=== PATIENT | male | born 1940 | race Two or more races ===

== ENCOUNTER → 2024-08-26 | Outpatient (CLI) | payer MEDICARE, MEDICAID, SELFPAY ==
[2024-08-26 09:08] LABS: Collection Type, Urine Clean Catch; Squamous Epithelial Cell,Urine 0 /hpf (0-5)
[2024-08-26 10:19] LABS: Basophils % (Auto) 1 % (0-2.5); Eosinophils # (Auto) 0.3 Thou/mm3 (0.0-0.5); Eosinophils % (Auto) 5 % (0-10); Hematocrit 41.8 % (41.0-53.0); Hemoglobin 14.1 g/dL (13.5-16.0); Immature Granulocytes % (Auto) 0 % (0-0); Immature Granulocytes Auto 0.01 Thou/mm3 (0.00-0.00); Lymphocytes # (Auto) 1.9 Thou/mm3 (1.0-4.8); Lymphocytes % (Auto) 31 % (10-50); Mean Corpuscular HGB Conc 33.7 g/dl (31.0-37.0); Mean Corpuscular Hemoglobin 29.7 pg (25.0-35.0); Mean Corpuscular Volume 88 fL (80-100); Monocytes # (Auto) 0.4 Thou/mm3 (0.0-0.8); Monocytes % (Auto) 7 % (0-12); Neutrophils # (Auto) 3.4 Thou/mm3 (1.8-7.7); Neutrophils % (Auto) 56 % (37-80); Nucleated Red Blood Cell % 0 /100 WBC (0); Platelet Count 268 Thou/mm3 (140-440); RDW Standard Deviation 45.9 fL (35.1-43.9); Red Blood Count 4.74 Miln/mm3 (4.50-5.90)
[2024-08-26 10:28] LABS: Bilirubin,Urine Negative (Negative); Blood,Urine Negative (Negative); Clarity,Urine Clear (Clear/Hazy); Color,Urine Lt-Yellow (Lt Yel-Yel); Glucose, Urine 4+ (Negative); Ketones,Urine Negative (Negative); Leukocyte Esterase,Urine Positive (Negative); Nitrite,Urine Negative (Negative); Protein,Urine 1+ (Neg - Trace); RBC,Urine 2 /hpf (0-3); Specific Gravity,Urine 1.022 (1.001-1.035); Urobilinogen,Urine Negative mg/dL (0.0-1.0); WBC,Urine 9 /hpf (0-5)
[2024-08-26 10:32] LABS: Parathyroid Hormone Intact 66.3 pg/ml (18.5-88.0)
[2024-08-26 10:38] LABS: Vitamin D 25 Hydroxy Total 68.6 ng/mL (7.3-40.2)
[2024-08-26 10:41] LABS: Glucose Estimated Average 194 mg/dL (80-131); Hemoglobin A1C 8.4 % Hgb (4.8-6.0)
[2024-08-26 11:01] LABS: Albumin, Serum 3.9 gm/dL (3.4-4.8); Anion Gap 8 (7-16); BUN/Creatinine Ratio 16 Ratio (12-20); Blood Urea Nitrogen 21 mg/dL (9-23); Calcium 8.7 mg/dL (8.3-10.6); Calcium (Corrected) 8.8 mg/dL (8.5-10.1); Carbon Dioxide 25.4 mMol/L (20.0-31.0); Chloride 103 mMol/L (98-107); Creatinine (Component) 1.3 mg/dL (0.6-1.3); Glucose 107 mg/dL (74-106); Osmolality,Calculated 274 (275-295); Phosphorous 3.7 mg/dL (2.4-5.1); Potassium 4.3 mMol/L (3.4-5.1); Sodium 136 mMol/L (136-145); eGFR 54 See Note
== END | disposition home or self-care (01) ==
LOC: COPL 07:42
PROVIDERS: PCP Internal Medicine; Referring Provider Internal Medicine Nephrology; Visit Provider Internal Medicine Nephrology
DX: E11.22 Type 2 diabetes mellitus with diabetic chronic kidney disease (principal); N18.31 Chronic kidney disease, stage 3a; E55.9 Vitamin D deficiency, unspecified
CPT/HCPCS: 36415; 80069; 81001; 82306; 83036; 83970; 85025

== ENCOUNTER 2024-10-28 06:55 | Observation (INO) | payer MEDICARE, MEDICAID, SELFPAY ==
[2024-10-28] VITALS (12 sets, daily range): BP systolic 154–198; BP diastolic 71–103; PULSE 53–94; RESP 12–93; TEMP 36.1–36.7; O2SAT 73–99; BMI 31.3
--- NOTE | 2024-10-28 | XR_ITS ---
Examinations: MRI Brain without intravenous contrast. MRA brain without intravenous contrast. MRA carotids without intravenous contrast 3-D vascular reconstructions Date and time of exam: October 28, 2024 1257 hours INDICATIONS: Dizziness episodes beginning 6:00 AM this morning Technique: Multiple axial and sagittal images of the brain have been obtained MRA brain carotid images without contrast obtained, including 3-D postprocessing, vascular maximum intensity projection images Findings: Sellaturcica is not enlarged. The optic chiasm and infundibular stalk are not remarkable. Prepontine and interpeduncular cisterns are not enlarged. No localized enlargement of the medulla or soheila. Fourth ventricle and cerebellar tonsils normal in position. Subacute hemorrhage is not seen. Fourth ventricle is midline. Mass in the cerebellopontine angle region is not evident. 7th and 8th nerve complexes exhibits symmetry. Globes are symmetrical with no retro-orbital mass. Increased white matter signal moderate Diffusion-weighted images demonstrate no focus of restricted diffusion Mass-effect upon the ventricular system is not identified. MRA carotid images degraded by patient motion. MRA brain images no large vessel occlusions Impression: Negative for acute hemorrhage mass effect or midline shift No acute infarct No cerebral large vessel arterial occlusions
--- NOTE | 2024-10-28 07:57 | XR_ITS ---
Examination: CTA carotids with intravenous contrast CTA brain, head with intravenous contrast. 2-D sagittal, coronal reconstructions. 3-D reconstructions. Exam date and time: October 28, 2024 0816 hours INDICATIONS: Stroke alert, onset generalized body weakness nausea vomiting today CTDI: vol (mGy) 27 DLP: (mGycm) 470 Technique: Multiple CTA axial brain, head carotid images post intravenous contrast injection 75 cc, [id number]. 2-D sagittal, coronal reconstructions. 3-D reconstructions, 3-D post processing including vascular maximum intensity projection images. Low dose protocols were performed. One or more of the following dose reduction techniques were used; automated exposure control, adjustment of the mA and/or KV according to patient size, use of iterative reconstruction technique. Findings: 14 mm right thyroid nodule Bone destruction involving the occipital bones Pulmonary mass right upper lobe indistinct margins, partially visualized, at least 4 cm No significant common carotid carotid bifurcation or internal carotid artery stenoses Dominant right vertebral artery with no critical stenoses No cerebral large vessel arterial occlusions thrombus dissection or cerebral aneurysm IMPRESSION: 14 mm right thyroid nodules Pulmonary mass right upper lobe, please see the CT chest report February 25, 2018, recommend repeat CT chest follow-up No significant neck arterial stenoses No cerebral large vessel arterial occlusions 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 This is noted on the CT brain scan September 06, 2017
--- NOTE | 2024-10-28 07:57 | XR_ITS ---
Examination: CT brain head without contrast. 2-D sagittal coronal reconstructions Date and time of exam:October 28, 2024 0808 hours INDICATIONS: Stroke alert, onset focal neurologic deficit today Technique: Multiple CT axial sections of the brain have been obtained, 5 mm slice thickness. Contrast has not been administered. 2-D sagittal, coronal reconstructions have been obtained Low dose protocols were performed. One or more of the following dose reduction techniques were used; automated exposure control, adjustment of the mA and/or KV according to patient size, use of iterative reconstruction technique. Findings: No significant ventricular enlargement. Intra-axial or extra-axial hemorrhage density is not seen. No mass effect or midline shift Basal cisterns are not remarkable. Fourth ventricle is midline. Cranial vault intact. Impression: Negative for acute hemorrhage, mass effect or midline shift
[2024-10-28 08:09] LABS: Basophils % (Auto) 1 % (0-2.5); Eosinophils # (Auto) 0.2 Thou/mm3 (0.0-0.5); Eosinophils % (Auto) 2 % (0-10); Hematocrit 40.3 % (41.0-53.0); Hemoglobin 13.9 g/dL (13.5-16.0); Immature Granulocytes % (Auto) 0 % (0-0); Immature Granulocytes Auto 0.03 Thou/mm3 (0.00-0.00); Lymphocytes # (Auto) 1.3 Thou/mm3 (1.0-4.8); Lymphocytes % (Auto) 14 % (10-50); Mean Corpuscular HGB Conc 34.5 g/dl (31.0-37.0); Mean Corpuscular Hemoglobin 30.3 pg (25.0-35.0); Mean Corpuscular Volume 88 fL (80-100); Monocytes # (Auto) 0.4 Thou/mm3 (0.0-0.8); Monocytes % (Auto) 4 % (0-12); Neutrophils # (Auto) 6.9 Thou/mm3 (1.8-7.7); Neutrophils % (Auto) 79 % (37-80); Nucleated Red Blood Cell % 0 /100 WBC (0); Platelet Count 214 Thou/mm3 (140-440); RDW Standard Deviation 46.7 fL (35.1-43.9); Red Blood Count 4.59 Miln/mm3 (4.50-5.90); White Blood Count 8.8 Thou/mm3 (3.8-10.6)
--- NOTE | 2024-10-28 08:20 | PC.NURSE ---
PER TELENEUROLOGIST DR. SHANKS, PT NOT A CANDIDATE FOR THROMBOLYTICS AT THIS TIME.
[2024-10-28 08:27] LABS: B-Type Natriuretic Peptide 104 pg/mL (0-100)
--- NOTE | 2024-10-28 08:34 | PD.TNEURO ---
Tele Neuro Consultation Consultation Date 10/28/24 Most Recent Vital Signs Last Vital Signs Temp 97.8 F 10/28/24 07:28 Pulse 83 10/28/24 07:28 Resp 14 10/28/24 07:28 BP 179/103 H 10/28/24 07:28 Pulse Ox 90 L 10/28/24 07:28 O2 Del Method Room Air 10/28/24 07:28 O2 Flow Rate 2 10/28/24 07:00 Consultation Narrative [facility] Tele[facility]urology Consult Services Patient Name: Kumar Yoon Date of : 1940 Identification Number: Date of Service: 10/28/2024 07:59:26 Diagnosis: ? I63.89 - Cerebrovascular accident (CVA) due to other mechanism ([facility]) Impression: ? Stroke Patient is not an IV thrombolytic candidate as he awoke w the symptoms - unknown Last normal time then Plan - Await results of the CTA h/n Plavix loading, 300 mg now, then begin 21 day course of ASA 81 mg and Plavix 75 mg daily MRI brain w/o Our recommendations are outlined below. Recommendations: ? Stroke/Telemetry Floor ? Neuro Checks (Q2) ? Bedside Swallow Eval ? DVT Prophylaxis ? IV Fluids, Normal Saline ? Head of Bed 30 Degrees ? Euglycemia and Avoid Hyperthermia (PRN Acetaminophen) ? Bolus with Clopidogrel 300 mg bolus x1 and initiate dual antiplatelet therapy with Aspirin 81 mg daily and Clopidogrel 75 mg daily ? Antihypertensives PRN if Blood pressure is greater than 220/120 or there is a concern for End organ damage/contraindications for permissive HTN. If blood pressure is greater than 220/120 give labetalol PO or IV or Vasotec IV with a goal of 15% reduction in BP during the first 24 hours. Sign Out: ? Discussed with Rapid Response Team Advanced Imaging: Advanced imaging has been ordered. Results pending. Metrics: Last Known Well: Unknown Dispatch Time: 10/28/2024 07:59:26 Arrival Time: 10/28/2024 07:12:00 Initial Response Time: 10/28/2024 08:01:04 Symptoms: Dizziness. Initial patient interaction: 10/28/2024 08:12:38 NIHSS Assessment Completed: 10/28/2024 08:17:24 Patient is not a candidate for Thrombolytic. Thrombolytic Medical Decision: 10/28/2024 08:17:26 Patient was not deemed candidate for Thrombolytic because of following reasons: LKW outside 4.[address] Head: I personally reviewed all the CT images that were available to me and it showed: no acute abnormality Primary Provider Notified of Diagnostic Impression and Management Plan on: 10/28/2024 08:21:33 History of Present Illness: Patient is a 84 year old Male. Patient was brought by EMS for symptoms of Dizziness. 84-year-old male with a past medical history significant for hypertension hyperlipidemia as well as diabetes patient is on aspirin reportedly awoke this morning with the room spinning sensation and frequent episodes of nausea and vomiting His symptoms became quite profound at 6:00 in the morning family then called EMS services Brought him to the hospital Past Medical History: ? Hypertension ? Diabetes Mellitus ? Hyperlipidemia ? There is no history of Atrial Fibrillation ? There is no history of Coronary Artery Disease ? There is no history of Stroke ? There is no history of Covid-19 ? There is no history of Seizures ? There is no history of Migraine Headaches ? There is no history of Dementia/MCI Medications: No Anticoagulant use Antiplatelet use: Yes ASA Reviewed EMR for current medications Allergies: Reviewed Social History: Drug Use: No Family History: There is no family history of premature cerebrovascular disease pertinent to this consultation ROS : 14 Points Review of Systems was performed and was negative except mentioned in HPI. Past Surgical History: There Is No Surgical History Contributory To Today?s Visit Examination: BP(179/103), Pulse(83), Blood Glucose(107) 1A: Level of Consciousness - Alert; keenly responsive + 0 1B: Ask Month and Age - Both Questions Right + 0 1C: Blink Eyes & Squeeze Hands - Performs Both Tasks + 0 2: Test Horizontal Extraocular Movements - Normal + 0 3: Test Visual Cuevas - No Visual Loss + 0 4: Test Facial Palsy (Use Grimace if Obtunded) - Normal symmetry + 0 5A: Test Left Arm Motor Drift - No Drift for 10 Seconds + 0 5B: Test Right Arm Motor Drift - No Drift for 10 Seconds + 0 6A: Test Left Leg Motor Drift - No Drift for 5 Seconds + 0 6B: Test Right Leg Motor Drift - No Drift for 5 Seconds + 0 7: Test Limb Ataxia (FNF/Heel-Brice) - No Ataxia + 0 8: Test Sensation - Normal; No sensory loss + 0 9: Test Language/Aphasia - Normal; No aphasia + 0 10: Test Dysarthria - Mild-Moderate Dysarthria: Slurring but can be understood + 1 11: Test Extinction/Inattention - No abnormality + 0 NIHSS Score: 1 Pre-Morbid Modified Manuel Scale: 0 Points = No symptoms at all Spoke with : nurse called no answer This consult was conducted in real time using interactive audio and video technology. Patient was informed of the technology being used for this visit and agreed to proceed. Patient located in hospital and provider located at home/office setting. Patient is being evaluated for possible acute neurologic impairment and high probability of imminent or life-threatening deterioration. I spent total of 35 minutes providing care to this patient, including time for face to face visit via telemedicine, review of medical records, imaging studies and discussion of findings with providers, the patient and/or family. Dr Rito Acosta [facility] For Inpatient follow-up with [facility] physician please call [facility] at . As we are not an outpatient service for any post hospital discharge needs please contact the hospital for assistance. If you have any questions for the [facility] physicians or need to reconsult for clinical or diagnostic changes please contact us via [facility] at .
[2024-10-28] MEDS: ONDANSETRON INJ 2 MG/ML INJ 2 ML 4 MG IV ×3 (08:38→19:51)
[2024-10-28] MEDS: SODIUM CHLORIDE 0.9% 1000 ML 1,000 ML 100 ML IV ×2 (08:41→21:52)
[2024-10-28 08:48] LABS: Alanine Aminotransferase 8 U/L (10-49); Albumin, Serum 3.9 gm/dL (3.4-4.8); Albumin/Globulin Ratio 1.1 (1.2-2.2); Alcohol, Blood Medical < 3.0 mg/dL (0-10.0); Alkaline Phosphatase 91 U/L (46-116); Anion Gap 11 (7-16); Aspartate Amino Transferase 11 U/L (0-34); BUN/Creatinine Ratio 14 Ratio (12-20); Bilirubin,Total 0.6 mg/dL (0.3-1.2); Blood Urea Nitrogen 20 mg/dL (9-23); Calcium (Corrected) 8.1 mg/dL (8.5-10.1); Carbon Dioxide 25.4 mMol/L (20.0-31.0); Chloride 103 mMol/L (98-107); Creatinine (Component) 1.4 mg/dL (0.6-1.3); Estimated Creatinine Clearance 39.4 mL/min (>60); Globulin 3.7 gm/dL (2.3-3.5); Glucose 241 mg/dL (74-106); Magnesium 2.2 mg/dL (1.6-2.6); Osmolality,Calculated 288 (275-295); Potassium 3.9 mMol/L (3.4-5.1); Sodium 139 mMol/L (136-145); Total Protein 7.6 gm/dL (5.7-8.2); Troponin I < 0.020 ng/mL (0.0-0.045); eGFR 49 See Note
[2024-10-28 09:01] LABS: Collection Type, Urine Catheter; Squamous Epithelial Cell,Urine 0 /hpf (0-5)
[2024-10-28 09:16] LABS: Bilirubin,Urine Negative (Negative); Blood,Urine Negative (Negative); Clarity,Urine Clear (Clear/Hazy); Color,Urine Lt-Yellow (Lt Yel-Yel); Glucose, Urine 4+ (Negative); Ketones,Urine Negative (Negative); Leukocyte Esterase,Urine Negative (Negative); Nitrite,Urine Negative (Negative); Protein,Urine 1+ (Neg - Trace); RBC,Urine 1 /hpf (0-3); Specific Gravity,Urine 1.017 (1.001-1.035); Urobilinogen,Urine Negative mg/dL (0.0-1.0); WBC,Urine 1 /hpf (0-5)
[2024-10-28 09:19] LABS: Amphetamine/Methamp Scrn,U Negative (Negative); Barbiturate Screen,Urine Negative (Negative); Benzodiazepines Screen,Urine Negative (Negative); Benzoylecgonine Screen, Ur Negative (Negative); Fentanyl Screen,Urine Negative (Negative); Opiate Screen,Urine Negative (Negative); THC Screen,Urine Negative (Negative)
[2024-10-28 09:24] LABS: Partial Thromboplastin Time 26.9 Seconds (22.0-36.0); Prothrombin Time 11.3 Seconds (9.0-12.2)
[2024-10-28] MEDS: ASPIRIN EC 81 MG TABEC PO (10:43)
[2024-10-28] MEDS: CLOPIDOGREL BISULFATE 75 MG TABLET 300 MG PO (10:43)
--- NOTE | 2024-10-28 11:23 | ECHO_ITS ---
Transthoracic Echo Report Ht (in): 66 Wt (lb): 194 Exam Location: Echo Lab Status: Inpatient Lab Support Service Tech: Kiki Cunningham Indications: Procedure Performed: BP: 164 / 77 HR: 81 Technical Quality: Technically difficult study MEASUREMENTS (Male / Female) Normal Values 2D ECHO LV Diastolic Diameter PLAX 5.2 cm 4.2 - 5.9 / 3.9 - 5.3 cm LV Systolic Diameter PLAX 3.5 cm IVS Diastolic Thickness 1.2 cm 0.6 - 1.0 / 0.6 - 0.9 cm LVPW Diastolic Thickness 1.3 cm 0.6 - 1.0 / 0.6 - 0.9 cm LV Relative Wall Thickness 0.5 LVOT Diameter 2.0 cm M-MODE Aortic Root Diameter MM 2.6 cm LA Systolic Diameter MM 4.1 cm LA Ao Ratio MM 1.6 AV Cusp Separation MM 1.0 cm DOPPLER AV Peak Velocity 290.5 cm/s AV Peak Gradient 33.8 mmHg AV Mean Gradient 20.0 mmHg AV Velocity Time Integral 62.7 cm LVOT Peak Velocity 68.7 cm/s LVOT Peak Gradient 1.9 mmHg LVOT Velocity Time Integral 15.2 cm LVOT Cardiac Index 1883.8 cm?/min?m? AV Area Cont Eq vti 0.8 cm? AV Area Cont Eq pk 0.7 cm? MV Peak Velocity 184.0 cm/s MV Peak Gradient 13.5 mmHg MV Mean Velocity 98.4 cm/s MV Mean Gradient 5.0 mmHg MV Area PHT 4.8 cm? Mitral E Point Velocity 148.0 cm/s LV E' Lateral Velocity 22.3 cm/s Mitral E to LV E' Lateral Ratio 6.6 LV E' Septal Velocity 12.7 cm/s Mitral E to LV E' Septal Ratio 11.7 FINDINGS Left Ventricle Normal left ventricular size and systolic function with no obvious regional wall motion abnormalities. Mild LVH. The ejection fraction is visually estimated at 55 %. Right Ventricle The right ventricle is normal in size and systolic function. McConnells sign is present. Left Atrium The left atrium is normal by two-dimensional, color flow and Doppler imaging with no structural abnormalities, no thrombus formation present. Right Atrium The right atrium is normal by two-dimensional imaging, color flow and Doppler imaging with no structural abnormalities, no thrombus formation present. Atrial Septum The interatrial septum appears normal with no evidence of a shunt. Aorta The aorta is normal by two-dimensional, color flow and Doppler interrogation. Mitral Valve Mild thickening of the mitral valve leaflets. Mild mitral regurgitation. Aortic Valve Aortic valve sclerosis. Mild aortic valve stenosis. Tricuspid Valve The tricuspid valve is normal by two-dimensional, color flow and Doppler interrogation. There is no significant tricuspid valve regurgitation. Pulmonic Valve The pulmonic valve is not well visualized. There is no significant pulmonic valve regurgitation. Vessels The pulmonary artery appears normal. The inferior vena cava pulmonary and hepatic veins appear normal. Pericardium The pericardium is normal by two-dimensional imaging. There is no significant pericardial effusion. CONCLUSIONS Indication: stroke Moderate Calcific aortic stenosis Vmax 2.8 m/sec with peak gradient 33 mmHg and mean gradient 21 mm HG Negative bubble study. No cardiac thrombi Normal left ventricular size and function. Mild LVH. Estimated EF 60 %. RV is normal in size and systolic function. Mild thickening of the MV with Mild MR. . Vivi Gray (Electronically Signed) Final Date: 29 Oct 2024 08:56
--- NOTE | 2024-10-28 11:30 | PD.EDDIZZY ---
ED Dizzyness RME/HPI General Chief Complaint: Weakness Stated Complaint: N/V Time Seen by Provider: 10/28/24 07:49 Arrival date/time: 10/28/24 06:55 Limitations: no limitations RME / HPI RME / HPI Narrative: 84 year old male with history of hypertension and diabetes presents to the ED [facility] from home for evaluation of acute dizziness that began at approximately 6:00 AM today. The patient reports that the dizziness started suddenly while attempting to get out of bed to get dressed. He describes the sensation as room-spinning and notes it was accompanied by nausea. No reported relieving or exacerbating factors, and due to the severity of symptoms, 911 was called. He denies any falls, trauma, or head injury. While in the ED, he states the dizziness has since improved. He denies any recent illness, fever, chills, diaphoresis, chest pain, cough, shortness of breath, abdominal pain, changes in bowel habits, or urinary symptoms. Related Data Home Medications ?Medication ?Instructions ?Recorded ?Confirmed cilostazol 50 mg tablet 50 mg PO BID 08/05/17 08/11/23 sitagliptin phosphate 100 mg 100 mg PO QDAY 08/05/17 08/11/23 tablet (Januvia) aspirin 81 mg tablet,delayed 81 mg PO QDAY Heart 09/30/17 08/11/23 release (Aspir-) atenolol 25 mg tablet 25 mg PO QAM 09/30/17 08/11/23 atorvastatin 40 mg tablet 40 mg PO QDAY 09/30/17 10/28/24 gemfibrozil 600 mg tablet 600 mg PO BID 09/30/17 08/11/23 amlodipine 10 mg tablet 10 mg PO BID 08/11/23 10/28/24 cholecalciferol (vitamin D3) 50 50 mcg PO QDAY 08/11/23 08/11/23 mcg (2,000 unit) capsule (Vitamin D3) docusate sodium 100 mg capsule 200 mg PO BID 08/11/23 08/11/23 (Stool Softener) dulaglutide 3 mg/0.5 mL 3 mg subcut QWEEK 08/11/23 08/11/23 subcutaneous pen injector (Trulicity) empagliflozin 10 mg tablet 10 mg PO QAM 08/11/23 10/28/24 (Jardiance) finasteride 5 mg tablet (Proscar) 5 mg PO QDAY 08/11/23 08/11/23 gabapentin 100 mg capsule 100 mg PO BID 08/11/23 08/11/23 glipizide 10 mg tablet 10 mg PO BID 08/11/23 10/28/24 melatonin 5 mg tablet 5 mg PO HS glip 08/11/23 08/11/23 multivitamin 1 tab PO QAM 08/11/23 10/28/24 tamsulosin 0.4 mg capsule (Flomax) 0.4 mg PO QDAY 08/11/23 10/28/24 vitamin A-vitamin C-vit E-min 1 tab PO QDAY 08/11/23 08/11/23 tablet clonidine HCl 0.1 mg tablet 0.1 mg PO .Once a day 10/28/24 10/28/24 Previous Rx's ?Medication ?Instructions ?Recorded meclizine 25 mg tablet 25 mg PO BID PRN dizziness #20 tabs 08/11/23 Allergies Allergy/AdvReac Type Severity Reaction Status Date / Time No Known Allergies Allergy Verified 10/28/24 07:27 Review of Systems Review of Systems Narrative Review of Systems: GEN: No fever, no chills, no weight loss EYES: No discharge, no visual changes, no pain HEENT: No ear pain, no congestion, no sore throat PULM: No shortness of breath, no cough, no congestion CV: No chest pain, no dyspnea on exertion, no palpitations GI: +nausea, no vomiting, no diarrhea, no pain, no constipation : No frequency, no urgency, no dysuria MUSC/SKEL: No joint pain, no back pain SKIN: No rash NEURO: No weakness, no headache, +dizziness (room spinning sensation) Past Medical History Past Medical History CARDIAC: Positive Cardiac Disorders, Hypercholesterolemia, Congestive Heart Failure and Hypertension GASTROINTESTINAL: Positive Gastrointestinal Disorders and Ulcer GENITOURINARY: Positive Genitourinary Disorders, Renal Disease and Benign Prostatic Hyperplasia MUSCULOSKELETAL: Positive Musculoskeletal Disorders and Arthritis ENDOCRINE: Positive Endocrine Disorders and Diabetes Mellitus Type 2 HEMATOLOGIC: Positive Blood Disorders and Clotting Problems OTHER HISTORY: Positive Blood Transfusions Surgical History SURGICAL: Positive Eye Surgery and Transurethral Resection Social History SMOKING STATUS: Never smoker ED Exam General Limitations: Present no limitations General appearance: Present alert and in no apparent distress Head Head exam: Present atraumatic, normocephalic, normal inspection and other (Face symetrical ) Eye Eye exam: Present normal appearance, PERRL, EOMI and other (No nystagmus ) ENT ENT exam: Present normal oropharynx, mucous membranes moist and other (poor dentition ) Neck Neck exam: Present normal inspection, full ROM and trachea midline Chest Chest inspection: Present normal inspection and symmetric chest wall rise Respiratory Respiratory exam: Present normal lung sounds bilaterally Cardiovascular Cardiovascular exam: Present regular rate, normal rhythm, normal heart sounds and other (Hollow systolic murmur 2/6 heard over the left sternal border ) Abdominal Exam Abdominal exam: Present soft and normal bowel sounds Extremities Exam Extremities exam: Present normal inspection and full ROM Back Exam Back exam: Present normal inspection and full ROM Neurological Exam Neurological exam: Present alert, oriented X3, CN II-XII intact and other (No nystagmus, strength in upper and lower extremities is equal) Psychiatric Psychiatric exam: Present normal affect and normal mood Skin Skin exam: Present warm, dry, intact and normal color Course Quality Measures Suspected type of Stroke: Non Acute Last know well: unknown Tenecteplase given: Reason(s) TPA not given: Outside the time window not given stroke Orders Category Date Time Status Bedside Blood Glucose NOW Care 10/28/24 07:57 Active COVID-19 Screening Questionnaire NOW Care 10/28/24 10:30 Completed Cogeneration Operator NOW Care 10/28/24 07:57 Active Continuous Pulse Oximetry NOW Care 10/28/24 07:57 Completed Decision to Admit X1 Care 10/28/24 10:30 Completed EKG (ED ONLY) *Do not use* NOW Care 10/28/24 07:27 Completed Insert IV NOW Care 10/28/24 07:57 Completed NIH Stroke Scale now Care 10/28/24 07:57 Active NPO NOW Care 10/28/24 07:57 Active Neuro Check Q15MIN Care 10/28/24 07:57 Active Nurse Swallow Screen x1 Care 10/28/24 07:57 Active Consult to Neurology / Tele-Neurology Routine Cons 10/28/24 07:[address] angio stroke protocol Stat Exams 10/28/24 07:[address] stroke protocol Stat Exams 10/28/24 07:57 Completed EKG (ED Only) Stat Exams 10/28/24 07:27 Ordered Alcohol, Blood Medical Stat Lab 10/28/24 08:00 Completed B-Type Natriuretic Peptide Stat Lab 10/28/24 08:00 Completed CBC Stat Lab 10/28/24 08:00 Completed Comprehensive Metabolic Panel Stat Lab 10/28/24 08:00 Completed Drug Screen,Urine Stat Lab 10/28/24 08:55 Completed Magnesium Stat Lab 10/28/24 08:00 Completed Partial Thromboplastin Time Stat Lab 10/28/24 08:00 Completed Prothrombin Time with INR Stat Lab 10/28/24 08:00 Completed Troponin I Stat Lab 10/28/24 08:00 Completed Urinalysis Stat Lab 10/28/24 08:55 Completed Urine Culture Stat Lab 10/28/24 08:55 Received Aspirin [Ecotrin] Med 10/28/24 10:30 Discontinued 81 mg PO X1 ONE Clopidogrel [Plavix] Med 10/28/24 10:30 Discontinued 300 mg PO X1 ONE Ondansetron Inj [Zofran Inj] Med 10/28/24 07:57 Active 4 mg IV Q4HR PRN Sodium Chloride 0.9% 1000 ml [Ns] 1,000 ml Med 10/28/24 08:00 Active IV Q10H Oxygen Delivery NOW RT 10/28/24 07:57 Active Vital Signs Vital signs: Vital Signs Pulse Rate 69 10/28/24 07:00 Respiratory Rate 13 10/28/24 07:00 Pulse Oximetry (%) 95 10/28/24 07:00 Oxygen Flow Rate 2 10/28/24 07:00 Dizziness MDM Narrative MDM Narrative:: Colette Berman am scribing for and in the presence of Dr. Ybarra. 84 year old male with a history of hypertension and diabetes who presents to the ED via EMS for evaluation of acute onset dizziness described as room spinning, accompanied by nausea. Symptoms began suddenly this morning around 06:00 while attempting to get out of bed. No associated trauma, fall, or head injury reported. Symptoms have improved since arrival to the ED. He denies systemic symptoms or other concerning complaints. Given the acute onset of vertigo a stroke alert was activated. However, per teleneurology consultation, the patient is not a candidate for thrombolytics due to being outside the treatment window and unknown last known well time. Head CT performed today was negative for acute intracranial hemorrhage. Head/neck CTA incidentally noted a thyroid nodule and findings consistent with previously documented pulmonary mass and bone destruction involving the lower occipital bones (as seen on prior imaging from 2018). At this time, the patient is hemodynamically stable with resolution of vertigo symptoms. Workup has not revealed an acute intracranial process. Vestibular etiology remains a likely contributor, though further neurologic evaluation may be warranted depending on clinical progression. Disposition decisions will be guided by stability, recurrence of symptoms, and need for additional workup. Patient data External records reviewed:: [facility] previous records (I reviewed ED visit on 08/11/2023 fro vertigo ) and EMS form Clinical information provided by:: patient and EMS Social determinants that could affect healthcare access:: none Patient has the following chronic illnesses:: HTN, DM How is presenting disease/condition affected by chronic disease/condition?: exacerbated by Evaluation data The following diagnostics were reviewed and interpreted by me:: lab results, radiology exam(s) and EKG tracing(s) (EKG @ 07:33 AM. Sinus rhythm with first degree AV block, AK int 334ms, QRS dur 99 ms, QT/QTc 396/432 ms ) Lab and/or radiology exams considered but not ordered:: None Interpretation Summary: Ordering Physician: Willian Ybarra MD Date of Service: 10/28/24 Procedure(s): CT stroke protocol Accession Number(s): [id number] cc: Willian Ybarra MD; Manolo Ro MD~ Examination: CT brain head without contrast. 2-D sagittal coronal reconstructions Date and time of exam:October 28, 2024 0808 hours INDICATIONS: Stroke alert, onset focal neurologic deficit today Technique: Multiple CT axial sections of the brain have been obtained, 5 mm slice thickness. Contrast has not been administered. 2-D sagittal, coronal reconstructions have been obtained Low dose protocols were performed. One or more of the following dose reduction techniques were used; automated exposure control, adjustment of the mA and/or KV according to patient size, use of iterative reconstruction technique. Findings: No significant ventricular enlargement. Intra-axial or extra-axial hemorrhage density is not seen. No mass effect or midline shift Basal cisterns are not remarkable. Fourth ventricle is midline. Cranial vault intact. Impression: Negative for acute hemorrhage, mass effect or midline shift Dictated By: Manolo Ro MD Signed By: <Electronically signed by Manolo Ro MD in [place]> 10/28/24 0822 Ordering Physician: Willian Ybarra MD Date of Service: 10/28/24 Procedure(s): CT angio stroke protocol Accession Number(s): [id number] cc: Willian Ybarra MD; Manolo Ro MD~ Examination: CTA carotids with intravenous contrast CTA brain, head with intravenous contrast. 2-D sagittal, coronal reconstructions. 3-D reconstructions. Exam date and time: October 28, 2024 0816 hours INDICATIONS: Stroke alert, onset generalized body weakness nausea vomiting today CTDI: vol (mGy) 27 DLP: (mGycm) 470 Technique: Multiple CTA axial brain, head carotid images post intravenous contrast injection 75 cc, [id number]. 2-D sagittal, coronal reconstructions. 3-D reconstructions, 3-D post processing including vascular maximum intensity projection images. Low dose protocols were performed. One or more of the following dose reduction techniques were used; automated exposure control, adjustment of the mA and/or KV according to patient size, use of iterative reconstruction technique. Findings: 14 mm right thyroid nodule Bone destruction involving the occipital bones Pulmonary mass right upper lobe indistinct margins, partially visualized, at least 4 cm No significant common carotid carotid bifurcation or internal carotid artery stenoses Dominant right vertebral artery with no critical stenoses No cerebral large vessel arterial occlusions thrombus dissection or cerebral aneurysm IMPRESSION: 14 mm right thyroid nodules Pulmonary mass right upper lobe, please see the CT chest report February 25, 2018, recommend repeat CT chest follow-up No significant neck arterial stenoses No cerebral large vessel arterial occlusions 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 This is noted on the CT brain scan September 06, 2017 Dictated By: Manolo Ro MD Signed By: <Electronically signed by Manolo Ro MD in [place]> 10/28/24 0915 Medications / Prescriptions Medications or Prescriptions considered but not ordered:: None Medication administrations:: Medication Administration History Sodium Chloride (Ns) 1,000 mls @ 100 mls/hr IV Q10H VEENA Stop: 11/27/24 07:59 Last Admin: 10/28/24 08:41 Dose: 100 mls/hr Documented By: MIRIAM Labetalol HCl (Labetalol Inj 5 Mg/Ml Vial 20 Ml) 10 mg IVP Q10MIN PRN PRN Reason: SBP > 220 Stop: 11/27/24 10:44 Ondansetron HCl (Ondansetron Inj 2 Mg/Ml Inj 2 Ml) 4 mg IV Q4HR PRN PRN Reason: NAUSEA OR VOMITING Stop: 11/27/24 07:56 Last Admin: 10/28/24 11:59 Dose: 4 mg Documented By: Admin: 10/28/24 08:38 Dose: 4 mg Documented By: GM Discontinued Medications Aspirin (Aspirin Ec 81 Mg Tabec) 81 mg PO X1 ONE Stop: 10/28/24 10:31 Last Admin: 10/28/24 10:43 Dose: 81 mg Documented By: GM Clopidogrel Bisulfate (Clopidogrel Bisulfate 75 Mg Tablet) 300 mg PO X1 ONE Stop: 10/28/24 10:31 Last Admin: 10/28/24 10:43 Dose: 300 mg Documented By: GM See above Consultations Consultation(s) initiated? (list below): Yes Consultation #1 (Physician, Specialty, Details): I spoke with teleneurologist Dr. Acosta, states patient is not a TNK candidate. LKW is unknown. Time: 08:21 Consultation #2 (Physician, Specialty, Details): I spoke with resident working with Dr. Carey regarding admission. Discussed patients PMHx, HPI, ED course, exam findings, labs, and radiology results. The hospitalist agree to accept the patient for admission. Time: 10:30 Diagnosis Most likely diagnosis given after review of the tests above:: Acute CVA Admission Indicated Admission indicated?: indicated Admission Request Was there a request for admission?: Yes Admission Attestation Admission request attestation: Discussed case with [] from Hospitalist service regarding admission. Discussed patients ED course, exam findings, labs, and radiology results. The Hospitalist [agrees,declines] to accept the patient for admission. Disposition Plan Disposition Plan: Admit Critical Care Time Critical Care Time Critical Care Time: Yes Total Critical Care Time (min.): 35 Attestation: The high probability of sudden, clinically significant deterioration in the patient's condition required the highest level of my preparedness to intervene urgently. The services I provided to this patient were to treat and/or prevent clinically significant deterioration. Services included the following: chart data review, reviewing nursing notes and/or old charts, documentation time, travel consultant collaboration regarding findings and treatment options, medication orders and management, direct patient care, vital sign assessments and ordering, interpreting and reviewing diagnostic studies and lab tests. Aggregate critical care time includes only time during which I was engaged in work directly related to the patient's care, as described above, whether at bedside or elsewhere in the Emergency Department. It did not include time spent performing other reported procedures or the services of residents, students, nurses or physician assistants. Discharge Plan Plan Patient Disposition: Admit Acute Care w/in Hospital Problem List Clinical Impression: Acute cerebrovascular accident (CVA)
--- NOTE | 2024-10-28 14:16 | PD.RESHP ---
Documentation for date of: 10/28/24 HPI History of Present Illness Chief complaint: Dizziness, Vomiting History of present illness: HPI: Patient [place]an-speaking and interaction facilitated by registered healthcare paper gluing operator. Patient beatriz Hamlin at bedside Patient is an 84-year-old male past medical history significant for primary pretension, hyperlipidemia, frt-vmzstyk-wwpktfcbo diabetes mellitus 2, congestive heart failure , CKD stage III A and CHF [unknown EF] presenting with a chief complaint of dizziness and vomiting. Patient follows up with his PCP Dr. Sanford and sas bi developer Dr. Pacheco Patient states that around 6 AM this morning he awoke from sleep with a sensation of [the room spinning], this was associated with nausea followed by vomiting initially food contents followed by mucus and bile as well as blurry vision. He also had an associated 6/10 headache with the dizziness with no aggravating or alleviating factors. He denied any hematemesis, coffee-ground emesis, diarrhea, sick contacts, recent ear infections, recent antibiotic use and recent travel. Patient stated that when he tried to stand from his bed he fell back down onto the bed. Denied any head trauma or loss of consciousness. Of note patient stated that a similar episode to this occurred in 2018. He never followed up with neurology. Teleneurology assessed the patient and suggested loading dose of clopidogrel, DAPT to start from tomorrow and MRI stroke protocol. ED course: BP 208/100, pulse 67, RR 20, SpO2 95% on room air Labs significant for BUN 20, CR 1.4, glucose 241, corrected calcium 8.1, BNP 104. Head CT was negative for acute hemorrhage, mass effect or midline shift. CTA showed 14 mm right thyroid nodule, 4 mm pulmonary nodule right upper lobe and bone destruction involving the occipital bones unchanged from CT brain 2018. No significant arterial stenosis. In the ED patient received ondansetron 4 Mg IV x 2, normal saline 1 L IV fluids, clopidogrel 100 Mg p.o. x 1 and aspirin 81 Mg p.o. x 1 Patient will be admitted for treatment and workup of dizziness for investigation and stroke rule out Neurologist, Dr. Harley consulted and closely following the case. Appreciate recommend Past medical history: Primary hypertension Fzj-otvrqcf-zmodloaym diabetes mellitus type 2 CHF CKD stage III A Hyperlipidemia History of pulmonary nodule History of occipital bone destruction seen on CT scan 2018 Medication list: Amlodipine 10 Mg p.o. twice daily Atorvastatin 40 Mg p.o. at bedtime Clonidine 0.1 Mg p.o. daily Empagliflozin 10 Mg p.o. every morning Glipizide 10 Mg p.o. twice daily Multivitamin 1 tab p.o. every morning Tamsulosin 0.4 Mg p.o. 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 Has 9 kids Tobacco use: Remote smoking history quit when he was 17 years old ETHO use: Denies Illicit drug use: Denies Social History Note: lives with his son. At baseline uses a motorized chair Family History: Family history of cancer in his brother and sister. Unsure of the type Review of Systems Review of Systems Narrative Review of Systems: GENERAL: Denies fever/chills or diaphoresis. HEENT: As above Neuro: As above CARDIO: Denies chest pain or palpitations. PULM: Denies SOB, coughing or wheezing. GI: As above URO: Denies burning/itching/pain/urinary changes. MSK/EXT/SKIN: Denies joint/skeletal/muscle pain, issues/changes in upper or lower extremities, itchiness, or superficial pain. PSYCH: Cooperative, pleasant mood & affect. The rest of the review of systems is otherwise negative. Exam Vital Signs Temp Pulse Resp BP Pulse Ox O2 Del Method O2 Flow Rate 97.7 F 69 15 198/92 H 73 L Nasal Cannula 2 10/28/24 12:03 10/28/24 12:03 10/28/24 12:03 10/28/24 12:03 10/28/24 12:03 10/28/24 12:03 10/28/24 12:03 Narrative Exam Constitutional Alert, oriented x 3 and comfortable. Elderly male HEENT Vision grossly intact. Patent nares. Trachea midline Respiratory Chest normal on inspection and clear auscultation bilaterally Cardiovascular S1 and S2 audible, RRR. No murmurs carotid bruit. No gross JVD. Abdominal Soft and non tender to palpation in all quadrants. BS + Genitourinary No bladder tenderness, no flank pain. Normal to palpation Musculoskeletal Extremities tone within normal limits. No LE edema. Skin Warm, dry and intact. No apparent lesions. Psychiatric Patient has good affect, is cooperative Neurological CN II - XII grossly intact. Extremity motor and sensation grossly intact. 1A: Level of Consciousness -alert +0 1B: Ask Month and Age -both questions correct +0 1C: Blink Eyes & Squeeze Hands - Performs Both Tasks + 0 2: Test Horizontal Extraocular Movements - Normal + 0 3: Test Visual Cuevas -normal vision +0 4: Test Facial Palsy (Use Grimace if Obtunded) -no paralysis +0 5A: Test Left Arm Motor Drift - No Drift for 10 Seconds + 0 5B: Test Right Arm Motor Drift - No Drift for 10 Seconds + 0 6A: Test Left Leg Motor Drift - No Drift for 5 Seconds + 0 6B: Test Right Leg Motor Drift - No Drift for 5 Seconds + 0 7: Test Limb Ataxia (FNF/Heel-Brice) - No Ataxia + 0 8: Test Sensation - Normal; No sensory loss + 0 9: Test Language/Aphasia -no aphasia +0 10: Test Dysarthria - Normal + 0 11: Test Extinction/Inattention - No abnormality + 0 NIHSS Score: 0 Results: Labs 10/28/24 08:00 10/28/24 08:00 Labs: Short CBC 10/28/24 Range/Units 08:00 WBC 8.8 (3.8-10.6) Thou/mm3 Hgb 13.9 (13.5-16.0) g/dL Hct 40.3 L (41.0-53.0) % Plt Count 214 (140-440) Thou/mm3 BMP 10/28/24 08:00 Sodium 139 Potassium 3.9 Chloride 103 Carbon Dioxide 25.4 BUN 20 Creatinine 1.4 H Glucose 241 H Calcium 8.0 L Cardiac Enzymes 10/28/24 Range/Units 08:00 Troponin I < 0.020 (0.0-0.045) ng/mL Liver Function 10/28/24 Range/Units 08:00 Total Bilirubin 0.6 (0.3-1.2) mg/dL AST 11 (0-34) U/L ALT 8 L (10-49) U/L Alkaline Phosphatase 91 (46-116) U/L Albumin 3.9 (3.4-4.8) gm/dL Urine 10/28/24 Range/Units 08:55 Urine Color Lt-Yellow (Lt Yel-Yel) Urine Clarity Clear (Clear/Hazy) Urine pH 7.0 (5.0-7.0) Ur Specific [place] 1.017 (1.001-1.035) Urine Protein 1+ A (Neg - Trace) Urine Glucose (UA) 4+ A (Negative) Quality Measures Quality Measures stroke Suspected type of Stroke: Non Acute Tenecteplase given: Reason(s) Tenecteplase not given: Outside the time window not given Rehab services: PT evaluation ordered and Speech Language Pathology eval ordered VTE Prophylaxis: pharmaceutical Antithrombotic by day 2:: ordered Statin ordered: >75 y/o moderate or high intensity dose Anticoagulation ordered for A-fib or flutter (current or hx): not indicated Advance care planning discussed with:: patient and child Medications Home Medications and Allergies Home Medications ?Medication ?Instructions ?Recorded ?Confirmed ?Type cilostazol 50 mg tablet 50 mg PO BID 08/05/17 08/11/23 History sitagliptin phosphate 100 mg 100 mg PO QDAY 08/05/17 08/11/23 History tablet (Januvia) aspirin 81 mg tablet,delayed 81 mg PO QDAY [facility] 09/30/17 08/11/23 History release (Aspir-) atenolol 25 mg tablet 25 mg PO QAM 09/30/17 08/11/23 History atorvastatin 40 mg tablet 40 mg PO QDAY 09/30/17 10/28/24 History gemfibrozil 600 mg tablet 600 mg PO BID 09/30/17 08/11/23 History amlodipine 10 mg tablet 10 mg PO BID 08/11/23 10/28/24 History cholecalciferol (vitamin D3) 50 50 mcg PO QDAY 08/11/23 08/11/23 History mcg (2,000 unit) capsule (Vitamin D3) docusate sodium 100 mg capsule 200 mg PO BID 08/11/23 08/11/23 History (Stool Softener) dulaglutide 3 mg/0.5 mL 3 mg subcut QWEEK 08/11/23 08/11/23 History subcutaneous pen injector (Trulicity) empagliflozin 10 mg tablet 10 mg PO QAM 08/11/23 10/28/24 History (Jardiance) finasteride 5 mg tablet (Proscar) 5 mg PO QDAY 08/11/23 08/11/23 History gabapentin 100 mg capsule 100 mg PO BID 08/11/23 08/11/23 History glipizide 10 mg tablet 10 mg PO BID 08/11/23 10/28/24 History melatonin 5 mg tablet 5 mg PO HS glip 08/11/23 08/11/23 History multivitamin 1 tab PO QAM 08/11/23 10/28/24 History tamsulosin 0.4 mg capsule (Flomax) 0.4 mg PO QDAY 08/11/23 10/28/24 History vitamin A-vitamin C-vit E-min 1 tab PO QDAY 08/11/23 08/11/23 History tablet clonidine HCl 0.1 mg tablet 0.1 mg PO .Once a day 10/28/24 10/28/24 History Allergies Allergy/AdvReac Type Severity Reaction Status Date / Time No Known Allergies Allergy Verified 10/28/24 07:27 Visit Medications Acetaminophen (Acetaminophen 325 Mg Tablet) 650 mg PO Q6HR PRN PRN Reason: Fever >100.3 or pain Stop: 11/27/24 14:11 Aspirin (Aspirin Ec 81 Mg Tabec) 81 mg PO QDAY [facility] Stop: 11/28/24 08:59 Atorvastatin Calcium (Atorvastatin Calcium 20 Mg Tablet) 80 mg PO HS [facility] Stop: 11/27/24 20:59 Clopidogrel Bisulfate (Clopidogrel Bisulfate 75 Mg Tablet) 75 mg PO QDAY [facility] Stop: 11/28/24 08:59 Dextrose (Dextrose 50%-Water Inj 50 Ml Syringe) 50 ml IV Q15MIN PRN PRN Reason: BG <50 OR BG <70 & pt unresponsive Stop: 11/27/24 14:13 Glucagon (Glucagon Inj 1 Mg Vial) 1 mg IM Q15MIN PRN PRN Reason: BG <70, and no IV access Sodium Chloride (Ns) 1,000 mls @ 100 mls/hr IV Q10H [facility] Stop: 11/27/24 07:59 Last Admin: 10/28/24 08:41 Dose: 100 mls/hr Insulin Human Lispro (Insulin Lispro (Admelog) 1 Unit/0.01 Ml Unit) 0 unit SC Q6HR [facility]; Protocol Stop: 11/27/24 14:14 Labetalol HCl (Labetalol Inj 5 Mg/Ml Vial 20 Ml) 10 mg IVP Q10MIN PRN PRN Reason: SBP > 220 Stop: 11/27/24 10:44 Meclizine HCl (Meclizine Hcl 25 Mg Tablet) 25 mg PO TID PRN PRN Reason: DIZZINESS Stop: 11/27/24 14:11 Ondansetron HCl (Ondansetron Inj 2 Mg/Ml Inj 2 Ml) 4 mg IV Q4HR PRN PRN Reason: NAUSEA OR VOMITING Stop: 11/27/24 07:56 Last Admin: 10/28/24 11:59 Dose: 4 mg Discontinued Medications Aspirin (Aspirin Ec 81 Mg Tabec) 81 mg PO X1 ONE Stop: 10/28/24 10:31 Last Admin: 10/28/24 10:43 Dose: 81 mg Clopidogrel Bisulfate (Clopidogrel Bisulfate 75 Mg Tablet) 300 mg PO X1 ONE Stop: 10/28/24 10:31 Last Admin: 10/28/24 10:43 Dose: 300 mg Assessment & Plan Plan Patient is an 84-year-old male past medical history significant for primary pretension, hyperlipidemia, qhe-ylbirxc-fchinmtst diabetes mellitus 2, congestive heart failure , CKD stage III A and CHF [unknown EF] presenting with a chief complaint of dizziness and vomiting. Patient will be admitted for treatment and workup of dizziness for investigation and stroke rule out. Vertigo Vomiting Headache Stroke rule out DDx: Posterior stroke, BPPV, vestibular neuritis, labyrinthitis, otitis media Patient presented with acute onset vertigo, headache and vomiting upon awakening. On exam patient has nausea when turning his head to the left. Unable to tolerate Rosario-Hallpike maneuver. Head CT was negative for acute hemorrhage, mass effect or midline shift. CTA showed 14 mm right thyroid nodule, 4 mm pulmonary nodule right upper lobe and bone destruction involving the occipital bones unchanged from CT brain 2018. No significant arterial stenosis. Plan: - Patient is started on stroke protocol - Neuro checks q 4H - Head of bed elevated to 30 degrees - Swallow eval and bedside swallow screen ordered - PT/OT referrals placed - Seizure precautions in place - Allow permissive HTN. Antihypertensives if BP >220/120, with a goal of reduction in BP during the first 24 hours - HbA1C, Lipid panel, TSH ordered - ECHO with bubble study ordered - Brain MRI without contrast ordered - PRN Acetaminophen 650mg to avoid hyperthermia - PRN Labetaol 10 mg IV Q10 mins for SBP > 220 - DVT Prophylaxis with Heparin 5000 U SC BID - Clopidogrel 300 Mg p.o. x 1 - To start on DAPT with aspirin and Plavix from tomorrow as per neurology recommendations - Dr Harley consulted, pending in-house Neurology recommendations Primary hypertension Hyperlipidemia Home medication amlodipine, empagliflozin and atorvastatin. Plan: ? Antihypertensives on hold for permissive hypertension ? Started on atorvastatin 80 Mg p.o. at bedtime CKD stage III A Patient's baseline CR between 1.2?1.4. On admission CR 1.4 Plan: ? Renally dose medication ? Avoid nephrotoxic agents Chronic congestive heart failure, unknown EF Patient has CHF as per his history and appears to be on GDMT as per his home medication. 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 No echo on file On admission BNP 104. NYHA class II stage B Plan: -Strict input/output charting -Daily weight recording -Diet: 2g sodium restriction -Fluid restriction to 1.5L -Pending transthoracic echocardiogram to assess for wall motion abnormalities, valvular defects and ejection fraction. Health maintenance: Disposition: PT, speech eval. Pending MR brain and neurology recommendations Diet: Cardiac, low consistent carb, 1500 cc fluid restriction. Lines: pIVs GI Prophylaxis: Pantoprazole Thrombo Prophylaxis: Heparin Code status: Limited [no intubation] Plan of care discussed with Attending Dr. Cherry Jason MD PGY 1 Disclaimer: This note was dictated by speech recognition. Minor errors in legal transcriptionist may be present due to voice recognition software. Attending Provider Attestation/Addendum I have discussed and was present for the essential components of the history, physical examination, diagnosis, and treatment plan with the resident. I agree with the patient's care as documented by the resident and amended herein by me. Duke Carey, DO. Although this document has been carefully reviewed, there may still be some phonetic and other typographical errors. These errors are purely grammatical due to imperfections in the software program and should not be construed in any way to compromise the substance of the patient's medical care during this visit.
[2024-10-28] MEDS: INSULIN LISPRO (AdmeLOG) 1 UNIT/0.01 ML UNIT SC ×2 (15:27→18:39)
[2024-10-28] MEDS: MECLIZINE HCL 25 MG TABLET PO (15:27)
[2024-10-28] MEDS: PANTOPRAZOLE INJ 40 MG VIAL IVP (16:02)
--- NOTE | 2024-10-28 16:47 | PD.RESPRO ---
Documentation for date of: 10/28/24 Subjective Subjective Interval history: Patient is a 84-year-old male with a previous medical history of diabetes, hypertension, hyperlipidemia, CHF, CKD who was brought into the hospital due to dizziness, nausea and vomiting. Patient woke up with those symptoms at 6 AM this morning. He also reported having headache. Family member at the bedside, denies traumas to the head. Per chart review he had a visit to the ED with a similar complaints in the August 2023, head CT was negative for acute stroke and he was discharged from the ED. Teleneuro was consulted, head CT was negative for acute intracranial pathology, head and neck CTA was negative for large vessel occlusion, cervical arterial stenosis. MRI was negative for acute intracranial pathology. 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 Patient was not a candidate for TNK due to LKN unknown. Neurology was consulted for stroke rule out. Exam Vital Signs Temp Pulse Resp BP Pulse Ox O2 Del Method O2 Flow Rate 97.9 F 81 14 164/77 H 98 Room Air 2 10/28/24 14:18 10/28/24 14:46 10/28/24 14:46 10/28/24 14:18 10/28/24 14:21 10/28/24 14:18 10/28/24 12:03 Narrative Exam Gen: Well-developed and well-nourished. HEENT: NCAT, PERRLA, EOMI, MMM, anicteric conjunctivae. CVS: normal S1 and S2. RRR. No M/R/G. Resp: CTA B/L. No rhonchi, rales, crackles or wheezing. Abd: soft, non-tender, non-distended. BS+ in all 4 quadrants. MSK: Good ROM in BUE & BLE. No edema or rash. Neuro: CN II-XII grossly intact. Strength 5/5 in BUE & BLE. Alert and oriented x3. Mild left arm ataxia, dysmetria Psych: appropriate mood and affect. Objective Labs 10/28/24 08:00 10/28/24 08:00 Labs: Laboratory Results - last 24 hr 10/28/24 10/28/24 08:00 08:55 WBC 8.8 RBC 4.59 Hgb 13.9 Hct 40.3 L MCV 88 MCH 30.3 MCHC 34.5 RDW Std Deviation 46.7 H Plt Count 214 Neut % (Auto) 79 Lymph % (Auto) 14 [place] % (Auto) 4 Eos % (Auto) 2 Baso % (Auto) 1 Neut # (Auto) 6.9 Lymph # (Auto) 1.3 [place] # (Auto) 0.4 Eos # (Auto) 0.2 Baso # (Auto) 0.0 Immature Gran # (Auto) 0.03 H Absolute Nucleated RBC 0.00 Immature Gran % 0 Nucleated RBC % 0 PT 11.3 INR 1.0 APTT 26.9 Sodium 139 Potassium 3.9 Chloride 103 Carbon Dioxide 25.4 Anion Gap 11 BUN 20 Creatinine 1.4 H Estim Creat Clear Calc 39.4 L eGFR 49 L BUN/Creatinine Ratio 14 Glucose 241 H Calculated Osmolality 288 Calcium 8.0 L Corrected Calcium 8.1 L Magnesium 2.2 Total Bilirubin 0.6 AST 11 ALT 8 L Alkaline Phosphatase 91 Troponin I < 0.020 B-Natriuretic Peptide 104 H Total Protein 7.6 Albumin 3.9 Globulin 3.7 H Albumin/Globulin Ratio 1.1 L Ur Collection Type Catheter Urine Color Lt-Yellow Urine Clarity Clear Urine pH 7.0 Ur Specific [place] 1.017 Urine Protein 1+ A Urine Glucose (UA) 4+ A Urine Ketones Negative Urine Blood Negative Urine Nitrite Negative Urine Bilirubin Negative Urine Urobilinogen (Auto) Negative Ur Leukocyte Esterase Negative Urine RBC 1 Urine WBC 1 Ur Squamous Epith Cells 0 Urine Bacteria None Urine Opiates Screen Negative Urine Fentanyl Screen Negative Ur Barbiturates Screen Negative U Amphetamin/Meth Scrn Negative U Benzodiazepines Scrn Negative U Cocaine Metab Screen Negative U Marijuana (THC) Screen Negative Ethyl Alcohol < 3.0 Quality Measures Quality Measures stroke Suspected type of Stroke: Non Acute Tenecteplase given: Reason(s) Tenecteplase not given: Outside the time window not given Rehab services: PT evaluation ordered VTE Prophylaxis: pharmaceutical Antithrombotic by day 2:: ordered Statin ordered: >75 y/o moderate or high intensity dose Anticoagulation ordered for A-fib or flutter (current or hx): not indicated Advance care planning discussed with:: other Assessment & Plan Assessment Current Active Medications: Generic Name Dose Route Start Last Admin Trade Name Freq PRN Reason Stop Dose Admin Acetaminophen 650 mg 10/28/24 14:12 Acetaminophen 325 Mg Tablet PO 11/27/24 14:11 Q6HR PRN Fever >100.3 or pain Aspirin 81 mg 10/29/24 09:00 Aspirin Ec 81 Mg Tabec PO 11/28/24 08:59 QDAY [facility] Atorvastatin Calcium 80 mg 10/28/24 21:00 Atorvastatin Calcium 20 Mg Tablet PO 11/27/24 20:59 HS [facility] Clopidogrel Bisulfate 75 mg 10/29/24 09:00 Clopidogrel Bisulfate 75 Mg Tablet PO 11/28/24 08:59 QDAY VEENA Dextrose 50 ml 10/28/24 14:14 Dextrose 50%-Water Inj 50 Ml Syringe IV 11/27/24 14:13 Q15MIN PRN BG <50 OR BG <70 & pt unresponsive Glucagon 1 mg 10/28/24 14:14 Glucagon Inj 1 Mg Vial IM Q15MIN PRN BG <70, and no IV access Heparin Sodium (Porcine) 5,000 unit 10/28/24 21:00 Heparin Sod Inj 5000 Unit/Ml Vial SC 11/11/24 20:59 BID [facility] Sodium Chloride 1,000 mls @ 100 mls/hr 10/28/24 08:00 10/28/24 08:41 Ns IV 11/27/24 07:59 100 mls/hr Q10H [facility]EENA Administration Insulin Human Lispro 0 unit 10/28/24 14:15 10/28/24 15:27 Insulin Lispro (Admelog) 1 Unit/0.01 Ml Unit SC 11/27/24 14:14 1 unit Q6HR [facility] Administration Protocol Labetalol HCl 10 mg 10/28/24 10:42 Labetalol Inj 5 Mg/Ml Vial 20 Ml IVP 11/27/24 10:44 Q10MIN PRN SBP > 220 Meclizine HCl 25 mg 10/28/24 14:12 10/28/24 15:27 Meclizine Hcl 25 Mg Tablet PO 11/27/24 14:11 25 mg TID PRN Administration DIZZINESS Ondansetron HCl 4 mg 10/28/24 07:57 10/28/24 11:59 Ondansetron Inj 2 Mg/Ml Inj 2 Ml IV 11/27/24 07:56 4 mg Q4HR PRN Administration NAUSEA OR VOMITING Pantoprazole Sodium 40 mg 10/28/24 16:00 10/28/24 16:02 Pantoprazole Inj 40 Mg Vial IVP 11/27/24 15:59 40 mg QDAY [facility]EENA Administration Plan Patient is a 84-year-old male with a previous medical history of diabetes, hypertension, hyperlipidemia, CHF, CKD who was brought into the hospital due to dizziness, nausea and vomiting. Patient woke up with those symptoms at 6 AM this morning. #Dizziness #Mild left arm dysmetria #Acute stroke rule out Ddx: acute stroke vs BPPV Teleneuro was consulted, head CT was negative for acute intracranial pathology, head and neck CTA was negative for large vessel occlusion, cervical arterial stenosis. MRI was negative for acute intracranial pathology. 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 Plan: ? Telemetry ? Neurochecks every 4 hours ? Swallow screen ? Speech therapy eval ? Physical therapy eval ? DVT prophylaxis ? Head of bed elevation 30 degrees ? Euglycemia normothermia ? Aspirin 81 mg daily - Meclizine for dizziness #Primary hypertension #Hyperlipidemia #CKD stage III A #Chronic congestive heart failure, unknown EF - management per primary team Plan of care discussed with attending Dr. Harley. Elda Neri MD, PGY 1.
--- NOTE | 2024-10-28 17:49 | XR_ITS ---
Examination: CT chest with intravenous contrast 2-D sagittal and coronal reconstructions Exam date and time: October 29, 2024 at 1327 hours Comparison 02/25/2018 INDICATIONS: Pulmonary nodule right midlung [address] chest 02/25/2018 CTDI:vol (mGy) 17 DLP: (mGycm) 571 Technique: Multiple axial sections of the thorax have been obtained. Sections have been obtained, 3 mm slice thickness. Mediastinal and lung density settings have been obtained. Intravenous contrast administered, 60 cc Isovue-370. 2-D sagittal, coronal images obtained. Low dose protocols were performed. One or more of the following dose reduction techniques were used; automated exposure control, adjustment of the mA and/or KV according to patient size, use of iterative reconstruction technique. Findings: AP dimension ascending thoracic aorta 4 cm No pulmonary artery filling defects Mild enlargement cardiac contour No paratracheal tracheobronchial or bronchopulmonary adenopathy Lobular parenchymal disease in the right upper lobe is again depicted the main masslike area 34 mm compared to 32 mm on the prior study 4 mm pulmonary nodule right lower lobe Atelectasis in the lingular segment Minimal bilateral pleural disease Cholelithiasis Spleen not enlarged Fatty liver IMPRESSION: 34 mm lobular parenchymal disease in the right upper lobe compared to 32 mm on the prior study 4 mm pulmonary nodule right lower lobe
[2024-10-28] MEDS: CALCIUM GLUCONATE 10% INJ 1 GM/10 ML VIAL IV (18:22)
[2024-10-28] MEDS: ATORVASTATIN CALCIUM 20 MG TABLET 80 MG PO (20:20)
[2024-10-28] MEDS: HEPARIN SOD INJ 5000 UNIT/ML VIAL SC (20:22)
--- NOTE | 2024-10-28 23:55 | PC.NURSE ---
Night nurse noticed that patient had an order for cardiac diet for dinner and was recently NPO in the afternoon. MD Dr. Martinez was contacted to see if patient's lispro can be changed from q6hr to ACHS due to the patient now having a diet. Patients lispro changed from q6hr to ACHS as ordered by .
[2024-10-29] VITALS (12 sets, daily range): BP systolic 154–191; BP diastolic 77–91; PULSE 46–90; RESP 12–19; TEMP 36–36.9; O2SAT 94–99; BMI 31.1; BMI 13.0
[2024-10-29 05:28] LABS: Basophils % (Auto) 1 % (0-2.5); Eosinophils % (Auto) 0 % (0-10); Hematocrit 42.3 % (41.0-53.0); Hemoglobin 14.4 g/dL (13.5-16.0); Immature Granulocytes % (Auto) 0 % (0-0); Immature Granulocytes Auto 0.02 Thou/mm3 (0.00-0.00); Lymphocytes # (Auto) 1.6 Thou/mm3 (1.0-4.8); Lymphocytes % (Auto) 18 % (10-50); Mean Corpuscular Hemoglobin 30.4 pg (25.0-35.0); Mean Corpuscular Volume 89 fL (80-100); Monocytes # (Auto) 0.6 Thou/mm3 (0.0-0.8); Monocytes % (Auto) 7 % (0-12); Neutrophils # (Auto) 6.4 Thou/mm3 (1.8-7.7); Neutrophils % (Auto) 74 % (37-80); Nucleated Red Blood Cell % 0 /100 WBC (0); Platelet Count 236 Thou/mm3 (140-440); RDW Standard Deviation 47.3 fL (35.1-43.9); Red Blood Count 4.74 Miln/mm3 (4.50-5.90); White Blood Count 8.7 Thou/mm3 (3.8-10.6)
[2024-10-29 06:03] LABS: Glucose Estimated Average 192 mg/dL (80-131); Hemoglobin A1C 8.3 % Hgb (4.8-6.0)
[2024-10-29] MEDS: SODIUM CHLORIDE 0.9% 1000 ML 1,000 ML 100 ML IV ×2 (06:07→20:26)
[2024-10-29 06:13] LABS: Alanine Aminotransferase < 7 U/L (10-49); Albumin, Serum 3.7 gm/dL (3.4-4.8); Albumin/Globulin Ratio 1.1 (1.2-2.2); Alkaline Phosphatase 78 U/L (46-116); Anion Gap 11 (7-16); Aspartate Amino Transferase 13 U/L (0-34); BUN/Creatinine Ratio 15 Ratio (12-20); Bilirubin,Total 0.7 mg/dL (0.3-1.2); Blood Urea Nitrogen 20 mg/dL (9-23); Calcium (Corrected) 8.2 mg/dL (8.5-10.1); Carbon Dioxide 25.3 mMol/L (20.0-31.0); Cardiac Risk Estimate 2.7 RATIO (4.0-6.7); Chloride 106 mMol/L (98-107); Cholesterol 139 mg/dL (132-200); Creatinine (Component) 1.3 mg/dL (0.6-1.3); Estimated Creatinine Clearance 42.3 mL/min (>60); Globulin 3.5 gm/dL (2.3-3.5); Glucose 114 mg/dL (74-106); HDL Cholesterol 51 mg/dL (40-60); LDL Cholesterol,Calculated 75 mg/dL (0-130); Osmolality,Calculated 286 (275-295); Phosphorous 3.6 mg/dL (2.4-5.1); Potassium 4.6 mMol/L (3.4-5.1); Sodium 142 mMol/L (136-145); Thyroid Stimulating Hormone 1.18 uIU/mL (0.55-4.78); Total Protein 7.2 gm/dL (5.7-8.2); Triglycerides 67 mg/dL (30-150); eGFR 54 See Note
[2024-10-29] MEDS: PANTOPRAZOLE INJ 40 MG VIAL IVP (08:05)
[2024-10-29] MEDS: HEPARIN SOD INJ 5000 UNIT/ML VIAL SC ×2 (08:05→20:26)
[2024-10-29] MEDS: ASPIRIN EC 81 MG TABEC PO (08:06)
[2024-10-29] MEDS: CLOPIDOGREL BISULFATE 75 MG TABLET PO (08:06)
[2024-10-29] MEDS: MECLIZINE HCL 25 MG TABLET PO (09:33)
[2024-10-29] MEDS: amLODIPine BESYLATE 5 MG TABLET 10 MG PO ×2 (10:34→20:27)
[2024-10-29] MEDS: atenoloL 25 MG TABLET PO (10:34)
[2024-10-29] MEDS: INSULIN LISPRO (AdmeLOG) 1 UNIT/0.01 ML UNIT SC ×3 (11:21→20:26)
--- NOTE | 2024-10-29 12:20 | PC.SS ---
Initial assessment: this is 84 year old male, Frisian speaking. Patient informs he resides at home with his son Lanre. Patient informs that his emergency contact to be his daughter in law, Roberta Yoon . Patient has an electric power wheelchair. Patient PCP provided is Dr. Gentile. Patient to return home upon discharge, family able to transport. Patient and family agreeable to home health services. No preferred agency at this time. D/c plan: Home Next of kin: Roberta
--- NOTE | 2024-10-29 14:44 | PC.SS ---
Rounding note: pending PT evaluation and neurology recommendations.
--- NOTE | 2024-10-29 15:31 | ESPR_ITS ---
Documentation for date of: 10/29/24 Subjective Subjective Interval history: Patient was seen and examined at bedside. Vitally patient stable except for mild elevation of blood pressure it was 161/87, CBC and CMP at baseline serum creatinine 1.3. His MRI yesterday came back negative for any stroke. We switched his as needed IV labetalol to as needed if SBP more than 180 mmHg, restarting his home medication amlodipine however we increased the dose to 10 mg p.o. daily, and we also resumed his home medication atenolol. At this time are waiting for the echo and physical therapy recommendations for discharge. Patient will be discharged home with home health. Exam Vital Signs Temp Pulse Resp BP Pulse Ox O2 Del Method O2 Flow Rate 97.6 F 90 16 166/85 H 94 L Room Air 2 10/29/24 12:00 10/29/24 13:53 10/29/24 12:00 10/29/24 12:00 10/29/24 12:00 10/29/24 12:00 10/28/24 12:03 Narrative Exam GEN: AOx3, able to speak full sentences HEENT: NC/AC, oral mucosa moist, neck supple CVS: RRR, S1-S2 present, no murmurs appreciated RESP: CTAB GI: soft,non distended, non tender, NBS MSK: able to move all 4 limbs, no lower extremity edema SKIN: warm and dry MEDIA PRODUCER: CN II-XII and Sensation grossly intact. Objective Labs 10/29/24 04:52 10/29/24 04:52 Labs: Laboratory Results - last 24 hr 10/29/24 04:52 WBC 8.7 RBC 4.74 Hgb 14.4 Hct 42.3 MCV 89 MCH 30.4 MCHC 34.0 RDW Std Deviation 47.3 H Plt Count 236 Neut % (Auto) 74 Lymph % (Auto) 18 [place] % (Auto) 7 Eos % (Auto) 0 Baso % (Auto) 1 Neut # (Auto) 6.4 Lymph # (Auto) 1.6 [place] # (Auto) 0.6 Eos # (Auto) 0.0 Baso # (Auto) 0.0 Immature Gran # (Auto) 0.02 H Absolute Nucleated RBC 0.00 Immature Gran % 0 Nucleated RBC % 0 Sodium 142 Potassium 4.6 D Chloride 106 Carbon Dioxide 25.3 Anion Gap 11 BUN 20 Creatinine 1.3 Estim Creat Clear Calc 42.3 L eGFR 54 L BUN/Creatinine Ratio 15 [address]ucose [address] Glu mg/dL 192 H Hemoglobin A1c 8.3 H Calculated Osmolality 286 Calcium 8.0 L Corrected Calcium 8.2 L Phosphorus 3.6 Magnesium 2.0 Total Bilirubin 0.7 AST 13 ALT < 7 L Alkaline Phosphatase 78 Total Protein 7.2 Albumin 3.7 Globulin 3.5 Albumin/Globulin Ratio 1.1 L Triglycerides 67 Cholesterol 139 LDL Cholesterol, Calc 75 HDL Cholesterol 51 Cholesterol/HDL Ratio 2.7 L TSH 1.18 Quality Measures Quality Measures stroke Suspected type of Stroke: Non Acute Tenecteplase given: Reason(s) Tenecteplase not given: Outside the time window not given Rehab services: PT evaluation ordered VTE Prophylaxis: pharmaceutical Antithrombotic by day 2:: ordered Statin ordered: >75 y/o moderate or high intensity dose Anticoagulation ordered for A-fib or flutter (current or hx): not indicated Advance care planning discussed with:: patient Assessment & Plan Assessment Current Active Medications: Generic Name Dose Route Start Last Admin Trade Name Freq PRN Reason Stop Dose Admin Acetaminophen 650 mg 10/28/24 14:12 Acetaminophen 325 Mg Tablet PO 11/27/24 14:11 Q6HR PRN Fever >100.3 or pain Amlodipine Besylate 10 mg 10/29/24 10:30 10/29/24 10:34 Amlodipine Besylate 5 Mg Tablet PO 11/28/24 10:29 10 mg HS VEENA Administration Aspirin 81 mg 10/29/24 09:00 10/29/24 08:06 Aspirin Ec 81 Mg Tabec PO 11/28/24 08:59 81 mg QDAY VEENA Administration Atenolol 25 mg 10/29/24 10:30 10/29/24 10:34 Atenolol 25 Mg Tablet PO 11/28/24 10:29 25 mg QAM VEENA Administration Atorvastatin Calcium 80 mg 10/28/24 21:00 10/28/24 20:20 Atorvastatin Calcium 20 Mg Tablet PO 11/27/24 20:59 80 mg HS VEENA Administration Clopidogrel Bisulfate 75 mg 10/29/24 09:00 10/29/24 08:06 Clopidogrel Bisulfate 75 Mg Tablet PO 11/28/24 08:59 75 mg QDAY VEENA Administration Dextrose 50 ml 10/28/24 14:14 Dextrose 50%-Water Inj 50 Ml Syringe IV 11/27/24 14:13 Q15MIN PRN BG <50 OR BG <70 & pt unresponsive Glucagon 1 mg 10/28/24 14:14 Glucagon Inj 1 Mg Vial IM Q15MIN PRN BG <70, and no IV access Heparin Sodium (Porcine) 5,000 unit 10/28/24 21:00 10/29/24 08:05 Heparin Sod Inj 5000 Unit/Ml Vial SC 11/11/24 20:59 5,000 unit BID VEENA Administration Sodium Chloride 1,000 mls @ 100 mls/hr 10/28/24 08:00 10/29/24 06:07 Ns IV 11/27/24 07:59 100 mls/hr Q10H VEENA Administration Insulin Human Lispro 0 unit 10/29/24 07:30 10/29/24 11:21 Insulin Lispro (Admelog) 1 Unit/0.01 Ml Unit SC 11/28/24 07:29 1 unit ACHS VEENA Administration Protocol Labetalol HCl 10 mg 10/29/24 10:30 Labetalol Inj 5 Mg/Ml Vial 20 Ml IVP 11/27/24 10:44 Q10MIN PRN SBP > 180 Meclizine HCl 25 mg 10/28/24 14:12 10/29/24 09:33 Meclizine Hcl 25 Mg Tablet PO 11/27/24 14:11 25 mg TID PRN Administration DIZZINESS Ondansetron HCl 4 mg 10/28/24 07:57 10/28/24 19:51 Ondansetron Inj 2 Mg/Ml Inj 2 Ml IV 11/27/24 07:56 4 mg Q4HR PRN Administration NAUSEA OR VOMITING Pantoprazole Sodium 40 mg 10/30/24 09:00 Pantoprazole 40 Mg Tablet PO 11/29/24 08:59 QDAY VEENA Protocol Plan Summary: Patient is an 84-year-old male past medical history significant for primary pretension, hyperlipidemia, qui-hyjeimo-vofgvwzim diabetes mellitus 2, congestive heart failure , CKD stage III A and CHF [unknown EF] presenting with a chief complaint of dizziness and vomiting. Patient will be admitted for treatment and workup of dizziness for investigation and stroke rule out. Vertigo most likely peripheral Vomiting Headache Stroke ruled out DDx: Posterior stroke was ruled out, BPPV, vestibular neuritis, labyrinthitis, otitis media Patient presented with acute onset vertigo, headache and vomiting upon awakening. On exam patient has nausea when turning his head to the left. Unable to tolerate [place]-Hallpike maneuver. Head CT was negative for acute hemorrhage, mass effect or midline shift. CTA showed 14 mm right thyroid nodule, 4 mm pulmonary nodule right upper lobe and bone destruction involving the occipital bones unchanged from CT brain 2018. No significant arterial stenosis. MRI was negative for any acute infarct. Plan: - PT/OT referrals placed - Seizure precautions in place - ECHO with bubble study ordered pending - Brain MRI without contrast ordered - PRN Acetaminophen 650mg to avoid hyperthermia - Change PRN Labetaol 10 mg IV Q10 mins for SBP > 220 to SBP more than 180 - DVT Prophylaxis with Heparin 5000 U SC BID - Continue the patient on aspirin only ? Stop Plavix as MRI came back negative - Dr Harley consulted, pending in-house Neurology recommendations Primary hypertension Hyperlipidemia Home medication amlodipine, empagliflozin and atorvastatin. Plan: ? Patient is able medication amlodipine however and higher dose 10 mg p.o. daily ? Resume home medication atenolol 25 mg p.o. daily ? Resume home medication clonidine 0.5 daily ?Hydralazine 10 mg IV every 30 minutes for 3 doses if SBP more than 180. ? Antihypertensives on hold for permissive hypertension ? Started on atorvastatin 80 Mg p.o. at bedtime CKD stage III A Patient's baseline CR between 1.2?1.4. On admission CR 1.4 Plan: ? Renally dose medication ? Avoid nephrotoxic agents Chronic congestive heart failure, unknown EF Patient has CHF as per his history and appears to be on GDMT as per his home medication. Cannot recall the name of his floorman or last echo results. No echo on file On admission BNP 104. NYHA class II stage B Plan: -Strict input/output charting -Daily weight recording -Diet: 2g sodium restriction -Fluid restriction to 1.5L -Pending transthoracic echocardiogram to assess for wall motion abnormalities, valvular defects and ejection fraction. Health maintenance: Disposition: PT Diet: Cardiac, low consistent carb, 1500 cc fluid restriction. Lines: pIVs GI Prophylaxis: Pantoprazole Thrombo Prophylaxis: Heparin Code status: Limited [no intubation] - Patient's plan and care discussed with my attending, Dr. Cherry Barrera MD Internal Medicine PGY-2 Attending Provider Attestation/Addendum I have discussed and was present for the essential components of the history, physical examination, diagnosis, and treatment plan with the resident. I agree with the patient's care as documented by the resident and amended herein by me. Duke Carey DO. Although this document has been carefully reviewed, there may still be some phonetic and other typographical errors. These errors are purely grammatical due to imperfections in the software program and should not be construed in any way to compromise the substance of the patient's medical care during this visit.
[2024-10-29] MEDS: LABETALOL INJ 5 MG/ML VIAL 20 ML 10 MG IVP (15:45)
[2024-10-29] MEDS: cloNIDine HCL 0.1 MG TABLET PO (16:08)
[2024-10-29] MEDS: TAMSULOSIN HCL 0.4 MG CAPSULE PO (16:08)
--- NOTE | 2024-10-29 19:51 | PD.NEUROPROG ---
Documentation for date of: 10/29/24 Exam - Neurology Vital Signs Temp Pulse Resp BP Pulse Ox O2 Del Method O2 Flow Rate 96.8 F 90 17 179/80 H 94 L Room Air 2 10/29/24 16:00 10/29/24 16:08 10/29/24 16:00 10/29/24 16:08 10/29/24 16:00 10/29/24 16:00 10/28/24 12:03 Objective Labs 10/29/24 04:52 10/29/24 04:52 Labs: Laboratory Results - last 24 hr 10/29/24 04:52 WBC 8.7 RBC 4.74 Hgb 14.4 Hct 42.3 MCV 89 MCH 30.4 MCHC 34.0 RDW Std Deviation 47.3 H Plt Count 236 Neut % (Auto) 74 Lymph % (Auto) 18 [place] % (Auto) 7 Eos % (Auto) 0 Baso % (Auto) 1 Neut # (Auto) 6.4 Lymph # (Auto) 1.6 [place] # (Auto) 0.6 Eos # (Auto) 0.0 Baso # (Auto) 0.0 Immature Gran # (Auto) 0.02 H Absolute Nucleated RBC 0.00 Immature Gran % 0 Nucleated RBC % 0 Sodium 142 Potassium 4.6 D Chloride 106 Carbon Dioxide 25.3 Anion Gap 11 BUN 20 Creatinine 1.3 Estim Creat Clear Calc 42.3 L eGFR 54 L BUN/Creatinine Ratio 15 Glucose [address] Glu mg/dL 192 H Hemoglobin A1c 8.3 H Calculated Osmolality 286 Calcium 8.0 L Corrected Calcium 8.2 L Phosphorus 3.6 Magnesium 2.0 Total Bilirubin 0.7 AST 13 ALT < 7 L Alkaline Phosphatase 78 Total Protein 7.2 Albumin 3.7 Globulin 3.5 Albumin/Globulin Ratio 1.1 L Triglycerides 67 Cholesterol 139 LDL Cholesterol, Calc 75 HDL Cholesterol 51 Cholesterol/HDL Ratio 2.7 L TSH 1.18
[2024-10-29] MEDS: ATORVASTATIN CALCIUM 20 MG TABLET 80 MG PO (20:26)
--- NOTE | 2024-10-29 21:48 | EKG_ITS ---
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
--- NOTE | 2024-10-29 21:48 | PC.NURSE ---
DR. YUN MADE AWARE OF NEW CHANGES TO TELEMETRY. PT IN/OUT OF 2ND DEGREE TYPE 2 HB, HR 50'S. NO C/O OF CP. PT RESTING IN BED. NORMAL RHYTHM IS SR W/1ST DEGREE HB. TO ORDER EKG
[2024-10-30] VITALS (8 sets, daily range): BP systolic 136–165; BP diastolic 67–80; PULSE 57–93; RESP 8–96; TEMP 36.1–37.2; O2SAT 94–99; BMI 31.1; BMI 31.0
[2024-10-30] MEDS: SODIUM CHLORIDE 0.9% 1000 ML 1,000 ML 100 ML IV (05:49)
[2024-10-30 06:02] LABS: Basophils % (Auto) 1 % (0-2.5); Eosinophils # (Auto) 0.3 Thou/mm3 (0.0-0.5); Eosinophils % (Auto) 5 % (0-10); Hematocrit 39.8 % (41.0-53.0); Hemoglobin 13.3 g/dL (13.5-16.0); Immature Granulocytes % (Auto) 0 % (0-0); Immature Granulocytes Auto 0.02 Thou/mm3 (0.00-0.00); Lymphocytes # (Auto) 1.5 Thou/mm3 (1.0-4.8); Lymphocytes % (Auto) 21 % (10-50); Mean Corpuscular HGB Conc 33.4 g/dl (31.0-37.0); Mean Corpuscular Hemoglobin 30.4 pg (25.0-35.0); Mean Corpuscular Volume 91 fL (80-100); Monocytes # (Auto) 0.5 Thou/mm3 (0.0-0.8); Monocytes % (Auto) 7 % (0-12); Neutrophils # (Auto) 4.6 Thou/mm3 (1.8-7.7); Neutrophils % (Auto) 66 % (37-80); Nucleated Red Blood Cell % 0 /100 WBC (0); Platelet Count 241 Thou/mm3 (140-440); RDW Standard Deviation 48.9 fL (35.1-43.9); Red Blood Count 4.38 Miln/mm3 (4.50-5.90)
[2024-10-30 06:41] LABS: Alanine Aminotransferase 9 U/L (10-49); Albumin, Serum 3.3 gm/dL (3.4-4.8); Alkaline Phosphatase 67 U/L (46-116); Anion Gap 9 (7-16); Aspartate Amino Transferase 18 U/L (0-34); BUN/Creatinine Ratio 19 Ratio (12-20); Bilirubin,Total 0.6 mg/dL (0.3-1.2); Blood Urea Nitrogen 25 mg/dL (9-23); Calcium 7.6 mg/dL (8.3-10.6); Calcium (Corrected) 8.2 mg/dL (8.5-10.1); Carbon Dioxide 26.1 mMol/L (20.0-31.0); Chloride 107 mMol/L (98-107); Creatinine (Component) 1.3 mg/dL (0.6-1.3); Estimated Creatinine Clearance 42.3 mL/min (>60); Globulin 3.2 gm/dL (2.3-3.5); Glucose 161 mg/dL (74-106); Magnesium 1.9 mg/dL (1.6-2.6); Osmolality,Calculated 290 (275-295); Phosphorous 2.8 mg/dL (2.4-5.1); Potassium 4.3 mMol/L (3.4-5.1); Sodium 142 mMol/L (136-145); Total Protein 6.5 gm/dL (5.7-8.2); eGFR 54 See Note
[2024-10-30] MEDS: INSULIN LISPRO (AdmeLOG) 1 UNIT/0.01 ML UNIT SC ×2 (07:30→11:55)
[2024-10-30] MEDS: ASPIRIN EC 81 MG TABEC PO (09:26)
[2024-10-30] MEDS: cloNIDine HCL 0.1 MG TABLET PO (09:26)
[2024-10-30] MEDS: Lisinopril 2.5 MG TABLET 10 MG PO (09:27)
[2024-10-30] MEDS: TAMSULOSIN HCL 0.4 MG CAPSULE PO (09:27)
[2024-10-30] MEDS: PANTOPRAZOLE 40 MG TABLET PO (09:27)
[2024-10-30] MEDS: HEPARIN SOD INJ 5000 UNIT/ML VIAL SC (09:28)
[2024-10-30] MEDS: CALCIUM CARBONATE 600 MG TABLET PO (09:29)
--- NOTE | 2024-10-30 11:58 | PD.RESPRO ---
Documentation for date of: 10/30/24 Exam Vital Signs Temp Pulse Resp BP Pulse Ox O2 Del Method O2 Flow Rate 97.1 F 66 20 136/67 H 94 L Room Air 2 10/30/24 08:00 10/30/24 10:40 10/30/24 10:40 10/30/24 09:27 10/30/24 08:00 10/30/24 08:00 10/30/24 00:00 Objective Labs 10/30/24 04:45 10/30/24 04:45 Labs: Laboratory Results - last 24 hr 10/30/24 04:45 WBC 7.0 RBC 4.38 L Hgb 13.3 L Hct 39.8 L MCV 91 MCH 30.4 MCHC 33.4 RDW Std Deviation 48.9 H Plt Count 241 Neut % (Auto) 66 Lymph % (Auto) 21 [place] % (Auto) 7 Eos % (Auto) 5 Baso % (Auto) 1 Neut # (Auto) 4.6 Lymph # (Auto) 1.5 [place] # (Auto) 0.5 Eos # (Auto) 0.3 Baso # (Auto) 0.0 Immature Gran # (Auto) 0.02 H Absolute Nucleated RBC 0.00 Immature Gran % 0 Nucleated RBC % 0 Sodium 142 Potassium 4.3 Chloride 107 Carbon Dioxide 26.1 Anion Gap 9 BUN 25 H Creatinine 1.3 Estim Creat Clear Calc 42.3 L eGFR 54 L BUN/Creatinine Ratio 19 Glucose 161 H Calculated Osmolality 290 Calcium 7.6 L Corrected Calcium 8.2 L Phosphorus 2.8 Magnesium 1.9 Total Bilirubin 0.6 AST 18 ALT 9 L Alkaline Phosphatase 67 Total Protein 6.5 Albumin 3.3 L Globulin 3.2 Albumin/Globulin Ratio 1.0 L Quality Measures Quality Measures stroke Suspected type of Stroke: Non Acute Tenecteplase given: Reason(s) Tenecteplase not given: Outside the time window not given Assessment & Plan Assessment Current Active Medications: Generic Name Dose Route Start Last Admin Trade Name Freq PRN Reason Stop Dose Admin Acetaminophen 650 mg 10/28/24 14:12 Acetaminophen 325 Mg Tablet PO 11/27/24 14:11 Q6HR PRN Fever >100.3 or pain Amlodipine Besylate 2.5 mg 10/30/24 21:00 Amlodipine Besylate 5 Mg Tablet PO 11/29/24 20:59 HS VEENA Aspirin 81 mg 10/29/24 09:00 10/30/24 09:26 Aspirin Ec 81 Mg Tabec PO 11/28/24 08:59 81 mg QDAY VEENA Administration Atenolol 25 mg 10/29/24 10:30 10/29/24 10:34 Atenolol 25 Mg Tablet PO 11/28/24 10:29 25 mg QAM VEENA Administration Atorvastatin Calcium 80 mg 10/28/24 21:00 10/29/24 20:26 Atorvastatin Calcium 20 Mg Tablet PO 11/27/24 20:59 80 mg HS VEENA Administration Calcium Carbonate 600 mg 10/30/24 09:00 10/30/24 09:29 Calcium Carbonate 600 Mg Tablet PO 11/29/24 08:59 600 mg QDAY VEENA Administration Clonidine 0.1 mg 10/29/24 15:45 10/30/24 09:26 Clonidine Hcl 0.1 Mg Tablet PO 11/28/24 15:44 0.1 mg QDAY VEENA Administration Dextrose 50 ml 10/28/24 14:14 Dextrose 50%-Water Inj 50 Ml Syringe IV 11/27/24 14:13 Q15MIN PRN BG <50 OR BG <70 & pt unresponsive Glucagon 1 mg 10/28/24 14:14 Glucagon Inj 1 Mg Vial IM Q15MIN PRN BG <70, and no IV access Heparin Sodium (Porcine) 5,000 unit 10/28/24 21:00 10/30/24 09:28 Heparin Sod Inj 5000 Unit/Ml Vial SC 11/11/24 20:59 5,000 unit BID EVENA Administration Hydralazine HCl 10 mg 10/29/24 15:50 Hydralazine Inj 20 Mg/Ml Vial IVP Q30MIN PRN SBP >180 Insulin Human Lispro 0 unit 10/29/24 07:30 10/30/24 11:55 Insulin Lispro (Admelog) 1 Unit/0.01 Ml Unit SC 11/28/24 07:29 1 unit ACHS VEENA Administration Protocol Lisinopril 10 mg 10/30/24 09:00 10/30/24 09:27 Lisinopril 2.5 Mg Tablet PO 11/29/24 08:59 10 mg QDAY VEENA Administration Meclizine HCl 25 mg 10/28/24 14:12 10/29/24 09:33 Meclizine Hcl 25 Mg Tablet PO 11/27/24 14:11 25 mg TID PRN Administration DIZZINESS Ondansetron HCl 4 mg 10/28/24 07:57 10/28/24 19:51 Ondansetron Inj 2 Mg/Ml Inj 2 Ml IV 11/27/24 07:56 4 mg Q4HR PRN Administration NAUSEA OR VOMITING Pantoprazole Sodium 40 mg 10/30/24 09:00 10/30/24 09:27 Pantoprazole 40 Mg Tablet PO 11/29/24 08:59 40 mg QDAY VEENA Administration Protocol Tamsulosin HCl 0.4 mg 10/29/24 15:45 10/30/24 09:27 Tamsulosin Hcl 0.4 Mg Capsule PO 11/28/24 15:44 0.4 mg QDAY VEENA Administration
--- NOTE | 2024-10-30 12:33 | ESDS_ITS ---
Planned Discharge Date 10/30/24 DS: Providers Provider Date of admission: 10/28/24 10:42 Primary care physician: Physician No Primary/Family Admitting Provider: Bakari Carey DO Attending Provider on Admission: Bakari Carey DO Consults: 10/28/24 07:57 Consult to Neurology / Tele-Neurology Routine Comment: Consulting Provider: [facility] 10/28/24 11:24 Referral Physical Therapy Routine Comment: Physician Instructions: Instructions: Stroke rule out Referral Speech Therapy Routine Comment: Stroke rule out 10/28/24 11:25 Consult to Neurology / Tele-Neurology Routine Comment: Vertigo. Rule out posterior stroke Consulting Provider: Power Harley 10/29/24 14:37 Referral OP Wound Healing Dept Routine Comment: Instructions: Left lower leg venous ulcer 10/29/24 14:38 Referral Nutritional Services Routine Comment: Instructions: DM with wounds 10/30/24 10:26 Consult to Cardiology Routine Comment: Consulting Provider: Debora Yi Instructions: Mobitz type 2 Attending Provider on DC: Bakari Carey DO Discharging Provider: Tra Jason MD DS: Diagnosis Problem List Completed Was Problem List Reviewed/Reconciled?: Yes Hospital Course Hospital Course Hospital course: Patient is an 84-year-old male past medical history significant for primary pretension, hyperlipidemia, lxm-lxfmkbp-plqahzyzs diabetes mellitus 2, congestive heart failure , CKD stage III A and CHF [unknown EF] presenting with a chief complaint of dizziness and vomiting. Patient will be admitted for treatment and workup of dizziness for investigation and stroke rule out. With regards to stroke rule out, patient had CT brain, CTA and MR brain all of which were negative for any acute infarct, hemorrhage or mass effect. At this time diagnosis of stroke unlikely. Patient's dizziness most likely due to BPPV as it is positional. Attempted to perform Baggs-Hallpike maneuver on patient during hospitalization, however he was unable to tolerated and became nauseous and started to vomit. Recommend physical therapy for vestibular rehab at home with home health. Also started patient on meclizine 25 Mg p.o. 3 times daily as needed for dizziness after which his condition improved. Regards to patient's primary hypertension, his home medication atenolol was discontinued due to him developing Mobitz type I heart block during h ospitalization. He was switched to lisinopril 10 Mg p.o. daily to titrate as necessary when he sees his primary care doctor. Cardiology, Dr. Artur Yi was consulted to assess patient for new onset Mobitz type I block, he recommended only medical management at this point. Currently no indication for permanent pacemaker placement. During hospitalization patient had transthoracic echocardiogram which showed moderate calcific aortic stenosis V-max 2.8M/sec with peak gradient 33 mmHg and mean gradient 21 mmHg. Bubble study was negative. Mild LVH and estimated EF 60%. RV is normal in size and systolic function. Patient had uncertain history of CHF, results of transthoracic echocardiogram ruled this out. Recommended repeat transthoracic echocardiogram in 6 months to assess for progression of aortic stenosis. All patient's labs are now returning to his baseline. Patient is now clinically stable and fit for discharge to home. Discharge diagnoses: 1. Vertigo most likely peripheral 2. BPPV 3. Vomiting?resolved 4. Headache?resolved 5. Stroke ruled out 6. Primary hypertension 7. Hyperlipidemia 8. CKD stage III 9. Congestive heart failure ruled out Discharge plan: ? We have stopped your medication atenolol, glipizide and Januvia. Do not take these anymore. The atenolol is causing your heart rate to go too slow and the glipizide can make your blood sugar drop too low. ? We have put a hold on your medication gemfibrozil. Do not take until you see your primary doctor. ? We have started you on a new blood pressure medication lisinopril. Take 1 tablet once a day. ? Take your blood pressure every day and write it down. Carry this log when you go to your primary doctor. ? Continue the rest of your home medication as before. ? You have a condition related to your inner ear [BPPV]. This may make you feel dizzy intermittently, you can do a maneuver called Laura to help with this. Follow-up with physical therapy at home. ? We recommend that you follow-up with a hedis nurse for a repeat echocardiogram within 6 months to monitor your aortic stenosis [tight valves] ? Continue to follow-up with your food products tester, Dr Pacheco within 2 weeks of discharge. - Follow up with your primary care physician within 1 week of discharge. If you do not have a primary care physician, please follow up with the [facility] Residents clinic ([phone]) ? If you experience any new, worsening or persistent symptoms either call your primary doctor, or dial 911 or present to the emergency department. 1) Follow up at [facility] for your leg wounds. [address] [facility]. Call [phone] for appointment. Follow up with home health as scheudled, please call to inform them you are discharged from the hospital. 2) Wound Care to lower legs: keep compression wraps clean and dry until seen by home health. BLE compression wraps with 20-30mmhg zinc 2 layer: cleanse with soap and water, pat dry, apply zinc layer than coban wrap. Change 3 times weekly and PRN for falling off or pain. We are grateful to be able to participate in Mr. Yoon's care. We wish him the best. Plan of care discussed with Attending Dr. Cherry Jason MD PGY 1 Disclaimer: This note was dictated by speech recognition. Minor errors in home school teacher may be present due to voice recognition software. Time Spent with Patient Time attestation: Total time spent providing and/or coordinating discharge services: Time spent: Greater than 30 minutes (39) Home Health Home Health Referral Orders: 10/29/24 15:41 Home Health Referral Routine Reason For Exam: debility Home-Bound The patient must either because of illness or injury, need the aid of supportive devices such as crutches, canes, wheelchairs, and walkers; the use of special transportation; or the assistance of another person in order to leave their place of residence; OR have a condition such that leaving his or her home is medically contraindicated. In addition, the patient also meets the following criteria: patient is normally unable to leave the home and leaving home requires considerable taxing effort. Addendum to Home Health Certification Practitioner's Certification: I certify that the patient has been under my care in the hospital and the care of attending physician (see below). We had a fyup-xe-novp encounter on (see date below). My clinical findings indicate that the patient is home bound per the above criteria and the Home Health Services noted in these orders are medically necessary. The primary reason for the oxbt-wq-amym encounter is related to the fact that the patient requires home health services. Date Certifying Kcdn-dk-Kgsw Physician Encounter: 10/28/24 Physician's Name who will Assume Oversight for Services: Dipak Sanford Physician's Phone No.who will Assume Oversight for Service: TIME STUDY OBSERVER - Community Resources: No PT to Evaluate: Yes PT to evaluate and provide a treatmnet plan to increase patient's mobility and strength. Wound Care: No IV Therapy: No Discontinue PICC Line Once Treatment Complete: No RN Safety Evaluation: Yes RN to evaluate and create a plan of care that will produce positive outcomes. Palliative Treatment: No Palliative treatment and evaluate the need for hospice. Home Health Aide - Personal Care: No Home Health Aide to assist with any ADL's. Exam Vital Signs Temp Pulse Resp BP Pulse Ox O2 Del Method O2 Flow Rate 97.0 F 64 8 L 152/72 H 94 L Room Air 2 10/30/24 12:00 10/30/24 12:00 10/30/24 12:00 10/30/24 12:00 10/30/24 12:00 10/30/24 12:10/30/24 00:00 Narrative Exam Constitutional Alert, oriented x 3 and comfortable. Elderly male HEENT Vision grossly intact. Patent nares. Trachea midline Respiratory Chest normal on inspection and clear auscultation bilaterally Cardiovascular S1 and S2 audible, RRR. 3/6 ejection systolic murmur heard at right sternal border with radiation to the carotids, 3/6 pansystolic murmur at apex. JVD not assessed Abdominal Soft and non tender to palpation in all quadrants. BS + Genitourinary No bladder tenderness, no flank pain. Normal to palpation Musculoskeletal Extremities tone within normal limits. Vertical, healed surgical scar over left knee. Lower extremities wrapped in bandages, clean and dry. Neurological CN II - XII grossly intact. Extremity motor and sensation grossly intact. Skin Warm, dry and intact. No apparent lesions. Psychiatric Patient has good affect, is cooperative Discharge Plan Plan Patient Disposition: Home w/HOME HEALTH Patient condition on transfer: Stable and Benefits outweigh risks Care Plan Goals: ? We have stopped your medication atenolol, glipizide and Januvia. Do not take these anymore. The atenolol is causing your heart rate to go too slow and the glipizide can make your blood sugar drop too low. ? We have put a hold on your medication gemfibrozil. Do not take until you see your primary doctor. ? We have started you on a new blood pressure medication lisinopril. Take 1 tablet once a day. ? Take your blood pressure every day and write it down. Carry this log when you go to your primary doctor. ? Continue the rest of your home medication as before. ? You have a condition related to your inner ear [BPPV]. This may make you feel dizzy intermittently, you can do a maneuver called Laura to help with this. Follow-up with physical therapy at home. ? We recommend that you follow-up with a hedis nurse for a repeat echocardiogram within 6 months to monitor your aortic stenosis [tight valves] ? Continue to follow-up with your food products tester, Dr Pacheco within 2 weeks of discharge. - Follow up with your primary care physician within 1 week of discharge. If you do not have a primary care physician, please follow up with the [facility] Residents clinic ([phone]) ? If you experience any new, worsening or persistent symptoms either call your primary doctor, or dial 911 or present to the emergency department. 1) Follow up at [facility] for your leg wounds. [address] [place] [address]. Call [phone] for appointment. Follow up with home health as jackson, please call to inform them you are discharged from the hospital. 2) Wound Care to lower legs: keep compression wraps clean and dry until seen by home health. BLE compression wraps with 20-30mmhg zinc 2 layer: cleanse with soap and water, pat dry, apply zinc layer than coban wrap. Change 3 times weekly and PRN for falling off or pain. Prescriptions/Referrals Prescriptions/Med Rec: New amlodipine 5 mg Tablet 2.5 mg PO HS 30 Days Qty: 15 0RF lisinopril 10 mg tablet 10 mg PO QDAY 30 Days Qty: 30 0RF calcium carbonate [Calcium 600] 600 mg calcium (1,500 mg) tablet 600 mg PO BID 7 Days Qty: 14 0RF Jardiance 25 mg tablet 25 mg PO QAM Qty: 14 0RF Continued cilostazol 50 mg Tablet 50 mg PO BID atorvastatin 40 mg Tablet 40 mg PO HS aspirin [Aspir-81] 81 mg Tablet,Delayed Release (Dr/Ec) 81 mg PO HS gabapentin 100 mg Capsule 100 mg PO BID multivitamin Tablet 1 tab PO QAM tamsulosin [Flomax] 0.4 mg Capsule 0.4 mg PO QDAY docusate sodium [Stool Softener] 100 mg Capsule 200 mg PO BID finasteride [Proscar] 5 mg Tablet 5 mg PO QDAY vitamin A-vitamin C-vit E-min Tablet 1 tab PO QDAY melatonin 5 mg Tablet 3 mg PO HS Patient Comments: Melatonin 3mg HS per son cholecalciferol (vitamin D3) [Vitamin D3] 50 mcg (2,000 unit) Capsule 50 mcg PO QDAY Patient Comments: Per MD son he takes D3 2000iu Trulicity 3 mg/0.5 mL Pen Injector 3 mg SUBCUT QWEEK Rx Instructions: Saturdays meclizine 25 mg tablet 25 mg PO BID PRN (Reason: dizziness) Qty: 20 0RF clonidine HCl 0.1 mg tablet 0.1 mg PO QDAY Patient Comments: TAKE 1 TABLET BY MOUTH EVERY DAY escitalopram oxalate [Lexapro] 10 mg tablet 10 mg PO QDAY cetirizine [All Day Allergy (cetirizine)] 10 mg tablet 10 mg PO HS PRN (Reason: allergy symptoms) Held gemfibrozil 600 mg Tablet 600 mg PO QDAY Hold Instructions: Hold until you see your PCP Discontinued Januvia 100 mg Tablet 100 mg PO QDAY atenolol 25 mg Tablet 25 mg PO QAM glipizide 10 mg Tablet 10 mg PO BID amlodipine 10 mg Tablet 2.5 mg PO HS Patient Comments: Pt. taking 2.5 mg @HS Jardiance 10 mg Tablet 10 mg PO QAM Referrals: [facility] [Outside] Alice Pacheco MD [Physician] - Pam Knowles MD [Physician] - No Primary/Family,Physician [Primary Care Provider] - Debora Yi MD [Physician] - Patient/Caregiver Discharge Instructions Discharge Activity: as per physical therapy Education Materials: Aortic Stenosis, BPPV, ED BPV Vertigo Print Language: Ecuadorean Stand Alone Forms: Dory Award Info., Patient Portal Info Letter Discharge Order Discharge Orders: Discharge (Routine); Ordered 10/30/24 Ordered By: Tra Jason Quality Discharge Quality Measures VTE prophylaxis MD Attestestation MD Attestation I have discussed and was present for the essential components of the discharge history, physical examination, diagnosis, and discharge treatment plan with the resident. I agree with the patient's discharge care as documented by the resident and amended herein by me. Duke Carey, . The patient understood all discharge instructions, all questions were answered satisfactorily. The patient was instructed to return to the Emergency Department is symptoms worsened or persisted. Patient's symptoms improved upon discharge although still there, suspect benign paroxysmal positional vertigo, home health ordered for continued physical therapy, if symptoms persist may need ENT follow-up. Blood pressure better controlled, we did add lisinopril 10 mg daily onto the patient's home regimen. As far as the patient's arrhythmias concern, cardiology was consulted due to concerning EKG findings however most likely type I AV block which is can be medically managed. Patient will need follow-up with his primary care physician within 5 to 7 days postdischarge. He was stable, afebrile, tolerating p.o. intake and ambulatory at time of discharge home. Of note, physical therapy did recommend SNF however the patient did refuse hence home health for physical therapy was ordered. Although this document has been carefully reviewed, there may still be some phonetic and other typographical errors. These errors are purely grammatical due to imperfections in the software program and should not be construed in any way to compromise the substance of the patient's medical care during this visit.
--- NOTE | 2024-10-30 17:32 | PC.CM ---
Addendum entered by Celia Gilliland RN 10/30/24 18:58: [facility] accepted patient and start of care date is set for 11/02. Original Note: Patient opened to [facility]. I sent referral today. Pending start of care date.
--- NOTE | 2024-11-03 19:48 | ESCONSULT_ITS ---
RE: GERALD PAYNE : 1940 DATE OF CONSULTATION: 10/30/2024 CONSULTING PHYSICIANS: Dr. Ewing REASON FOR CONSULTATION: Evaluation of bradycardia, Mobitz heart block. HISTORY OF PRESENT ILLNESS: The patient is an 84-year-old male admitted to the hospital recently on 10/28/2024 with questionable altered mental status, dizziness and giddiness. So far, neurologic workup was negative. No evidence of strokes. MRI scan is negative. Cardiac echo was normal as well. No evidence of intracardiac stents; however, EKG showed evidence of what initially they thought to have Mobitz type II second-degree heart block. Computer read has Mobitz type II second-degree heart block. Cardiac echo showed evidence of moderate calcific aortic stenosis. Aortic valve velocity 2.8 m/sec, peak gradient of 33 mmHg. The patient is feeling better. He has no symptoms of aortic stenosis. No chest pain. He has some dizziness, but no syncopal episodes. No chest pain or shortness of breath. No symptoms from the bradycardia. The patient's overall heart rate is normal. EKG showed evidence of Mobitz type I Wenckebach phenomenon. ALLERGIES: NONE. MEDICATIONS: The patient's medications are including amlodipine 10 mg daily, atorvastatin 40 mg at bedtime, clonidine 0.1 mg daily, empagliflozin 10 mg daily, glipizide 10 mg daily, multivitamin and tamsulosin. PAST MEDICAL HISTORY: Hypertension, diabetes, hypercholesterolemia, CKD stage III, history of occipital bone by CT. SOCIAL HISTORY: Not available. REVIEW OF SYSTEMS: CARDIOVASCULAR: As described earlier. GASTROINTESTINAL: No history of nausea or vomiting. GENITOURINARY: No history of frequency or dysuria. PHYSICAL EXAMINATION: GENERAL: Elderly male. Alert, awake, comfortable and in acute distress. VITAL SIGNS: Blood pressure 130/70, pulse rate is 70. NECK: Supple. LUNGS: Decreased breath sounds. HEART: Regular. Systolic murmur in aortic area, 2/6, aortic stenosis, [id number], otherwise unremarkable. ABDOMEN: Thin and soft. EXTREMITIES: Normal. DIAGNOSTIC DATA: EKG showed sinus rhythm, second-degree AV block, Mobitz type 1 Wenckebach phenomenon. ASSESSMENT: 1. Moderate calcific aortic stenosis. 2. Wenckebach phenomenon, asymptomatic. RECOMMENDATIONS: Continued medical management and no need for any pacemaker implantation. I would not mind following him as an outpatient following discharge for cardiac evaluation for aortic stenosis. DT: 18:03:04 TT: 19:20:00 Ref: [id number] - TID: [id number] MTDD
== END 2024-10-30 14:32 | disposition home health service (06) ==
LOC: SERX 09:48 → SERHOLD 11:06 → S2NX 16:36
PROVIDERS: Admitting Provider Student in an Organized Health Care Education/Training Program; Emergency Provider Family Medicine; Visit Provider Student in an Organized Health Care Education/Training Program
DX: H81.10 Benign paroxysmal vertigo, unspecified ear (principal); I44.1 Atrioventricular block, second degree; M19.90 Unspecified osteoarthritis, unspecified site; I50.9 Heart failure, unspecified; I35.0 Nonrheumatic aortic (valve) stenosis; N18.31 Chronic kidney disease, stage 3a; E78.00 Pure hypercholesterolemia, unspecified; E11.22 Type 2 diabetes mellitus with diabetic chronic kidney disease; I12.9 Hypertensive chronic kidney disease with stage 1 through stage 4 chronic kidney disease, or unspecified chronic kidney disease; Z01.810 Encounter for preprocedural cardiovascular examination; R11.2 Nausea with vomiting, unspecified; E78.5 Hyperlipidemia, unspecified
CPT/HCPCS: 36415; 70450; 70496; 70498; 70544; 71260; 80053; 80061; 80307; 80320; 81001; 83036; 83735; 83880; 84100; 84443; 84484; 85025; 85610; 85730; 87086; 92610; 93005; 93306; 96361; 96372; 96374; 96375; 96376; 97162; 99291; A4649; G0378; J0612; J0613; J1644; J1815; J2405; J2470; J3490; J7030; Q9967; A9270; G0480; J1920

== ENCOUNTER → 2025-05-03 | Outpatient (CLI) | payer MEDICARE, MEDICAID, SELFPAY ==
[2025-05-03 09:50] LABS: Basophils # (Auto) 0.0 Thou/mm3 (0.0-0.2); Basophils % (Auto) 0 % (0-2.5); Eosinophils # (Auto) 0.2 Thou/mm3 (0.0-0.5); Eosinophils % (Auto) 2 % (0-10); Hematocrit 41.3 % (41.0-53.0); Hemoglobin 13.4 g/dL (13.5-16.0); Immature Granulocytes Auto 0.02 Thou/mm3 (0.00-0.00); Lymphocytes # (Auto) 1.2 Thou/mm3 (1.0-4.8); Lymphocytes % (Auto) 13 % (10-50); Mean Corpuscular HGB Conc 32.4 g/dl (31.0-37.0); Mean Corpuscular Hemoglobin 29.6 pg (25.0-35.0); Mean Corpuscular Volume 91 fL (80-100); Monocytes # (Auto) 0.5 Thou/mm3 (0.0-0.8); Monocytes % (Auto) 6 % (0-12); Neutrophils # (Auto) 7.5 Thou/mm3 (1.8-7.7); Neutrophils % (Auto) 79 % (37-80); Nucleated Red Blood Cell # 0.00 Thou/mm3 (0.00-0.00); Nucleated Red Blood Cell % 0 /100 WBC (0); Platelet Count 243 Thou/mm3 (140-440); RDW Standard Deviation 47.5 fL (35.1-43.9); Red Blood Count 4.53 Miln/mm3 (4.50-5.90); White Blood Count 9.5 Thou/mm3 (3.8-10.6)
[2025-05-03 09:58] LABS: Glucose Estimated Average 186 mg/dL (80-131); Hemoglobin A1C 8.1 % Hgb (4.8-6.0)
[2025-05-03 10:03] LABS: Alanine Aminotransferase 10 U/L (10-49); Albumin, Serum 4.3 gm/dL (3.4-4.8); Albumin/Globulin Ratio 1.4 (1.2-2.2); Alkaline Phosphatase 85 U/L (46-116); Aspartate Amino Transferase 13 U/L (0-34); BUN/Creatinine Ratio 19 Ratio (12-20); Bilirubin,Total 0.6 mg/dL (0.3-1.2); Blood Urea Nitrogen 25 mg/dL (9-23); Calcium 8.6 mg/dL (8.3-10.6); Calcium (Corrected) 8.6 mg/dL (8.5-10.1); Cardiac Risk Estimate 2.3 RATIO (4.0-6.7); Chloride 105 mMol/L (98-107); Cholesterol 119 mg/dL (132-200); Creatinine (Component) 1.3 mg/dL (0.6-1.3); Free T4 (Free Thyroxine) 1.20 ng/dL (0.89-1.76); Globulin 3.1 gm/dL (2.3-3.5); Glucose 140 mg/dL (74-106); HDL Cholesterol 52 mg/dL (40-60); LDL Cholesterol,Calculated 58 mg/dL (0-130); Osmolality,Calculated 287 (275-295); Potassium 4.8 mMol/L (3.4-5.1); Sodium 141 mMol/L (136-145); Thyroid Stimulating Hormone 1.74 uIU/mL (0.55-4.78); Total Protein 7.4 gm/dL (5.7-8.2); Triglycerides 46 mg/dL (30-150); eGFR 53 See Note
[2025-05-03 10:17] LABS: Anion Gap 12 (7-16); Carbon Dioxide 23.8 mMol/L (20.0-31.0)
[2025-05-03 12:47] LABS: Vitamin B12 1138 pg/mL (211-911); Vitamin D 25 Hydroxy Total 62.0 ng/mL (7.3-40.2)
== END | disposition home or self-care (01) ==
LOC: COPL 08:26
PROVIDERS: PCP Internal Medicine; Referring Provider Internal Medicine; Visit Provider Internal Medicine
DX: I11.0 Hypertensive heart disease with heart failure (principal); E11.9 Type 2 diabetes mellitus without complications; E55.9 Vitamin D deficiency, unspecified; E03.9 Hypothyroidism, unspecified; E78.2 Mixed hyperlipidemia
CPT/HCPCS: 36415; 80053; 80061; 82306; 82607; 83036; 84439; 84443; 85025

== ENCOUNTER → 2025-05-16 | Outpatient (CLI) | payer MEDICARE, MEDICAID, SELFPAY ==
--- NOTE | 2025-05-16 11:38 | XR_ITS ---
Examination: Foot, left, 3 views Technique: AP, oblique, lateral views foot, 3 views Date and time of exam: May 16 2025, 1213 hours INDICATIONS: Left foot and heel pain several months FINDINGS: Severe osteopenia Moderate osteoarthritis first metatarsophalangeal joint 10 mm plantar bony calcaneal spur Soft tissue vascular calcification IMPRESSION: 10 mm plantar bony calcaneal spur
== END | disposition home or self-care (01) ==
PROVIDERS: PCP Internal Medicine; Referring Provider Internal Medicine; Visit Provider Internal Medicine
DX: M77.32 Calcaneal spur, left foot (principal)
CPT/HCPCS: 73630